=== PATIENT | male | born 1980 | race Caucasian/White ===

== ENCOUNTER 2022-04-21 08:56 | Inpatient (IN) | payer OTHER ==
[~2022-04-21] VITALS: Ht 177.8 cm; Wt 78.7 kg
[~2022-04-21 08:56] MED LIST: CHLO25 PO; ONDA4ODT MM; SULTRIDS PO
[2022-04-21 10:03] LABS: BASOPHILS ABSOLUTE AUTO 0.07 K/mm3 (0.00-0.23); BASOPHILS PERCENT AUTO 1 % (0-2); EOSINOPHILS ABSOLUTE AUTO 0.05 K/mm3 (0.00-0.68); EOSINOPHILS PERCENT AUTO 1 % (0-6); Hematocrit 42.4 % (37.0-53.0); Hemoglobin 13.4 g/dL (13.5-17.5); IMMATURE GRAN ABSOLUTE AUTO 0.04 K/mm3 (0.00-0.10); IMMATURE GRAN PERCENT AUTO 0 % (0-1); LYMPHOCYTES ABSOLUTE AUTO 2.06 K/mm3 (0.84-5.20); LYMPHOCYTES PERCENT AUTO 19 % (21-46); MONOCYTES ABSOLUTE AUTO 1.36 K/mm3 (0.16-1.47); MONOCYTES PERCENT AUTO 13 % (4-13); Mean Corpuscular HGB 32.8 pg (26.0-34.0); Mean Corpuscular HGB Conc 31.6 g/dL (31.5-36.5); Mean Corpuscular Volume 104 fL (80-100); Mean Platelet Volume 9.1 fL (9.1-12.4); NEUTROPHILS ABSOLUTE AUTO 7.15 K/mm3 (1.96-9.15); NEUTROPHILS PERCENT AUTO 67 % (41-73); NRBC ABSOLUTE 0.04 K/mm3 (0.00-0.02); NRBC Auto 0.4 /100 WBC (0.0-0.2); Platelet Count 454 K/mm3 (150-400); RDW Coefficient Variation 13.2 % (11.7-14.2); RDW Standard Deviation 50.4 fL (35.1-46.3); Red Blood Cell Count 4.09 M/mm3 (4.30-5.90); White Blood Cell Count 10.73 K/mm3 (4.00-11.30)
[2022-04-21 10:31] LABS: Albumin, Blood 2.6 g/dL (3.4-5.0); Albumin/Globulin Ratio 0.6 (0.8-1.8); Bilirubin, Direct 0.3 mg/dL (0.0-0.3); Bilirubin, Indirect 0.5 mg/dL (0.1-0.7); Bilirubin, Total 0.8 mg/dL (0.1-1.0); Calcium, Blood 8.8 mg/dL (8.5-10.1); Creatinine, Blood 0.92 mg/dL (0.60-1.20); Magnesium, Blood 2.1 mg/dL (1.6-2.4); Potassium, Blood 4.6 mmol/L (3.5-5.5); Thyroid Stimulating Hormone 2.7 uIU/mL (0.360-4.800); Total Protein, Blood 6.6 g/dL (6.4-8.2)
[2022-04-21 10:45] LABS: Influenza A, PCR NEGATIVE (NEGATIVE); Influenza B, PCR NEGATIVE (NEGATIVE); Resp Syncytial Virus, PCR NEGATIVE (NEGATIVE); SARS-Cov-2 (COVID-19) PCR, MMC NEGATIVE (NEGATIVE)
[2022-04-21 13:42] LABS: Base Excess Venous -5.1 mmol/L; Bicarbonate Venous 20.7 mmol/L (24.0-30.0); PCO2 Venous 36.3 mmHg (38-42); pH Blood Venous 7.36 (7.34-7.37)
[2022-04-21 13:51] LABS: International Normalized Ratio 1.7; Prothrombin Time Results 17.2 Sec (9.7-11.5)
--- NOTE | 2022-04-21 15:00 | NUR ---
PCU ADMIT PT BROUGHT TO PCU-12 BY KATEY FROM ER @ APPROX 1430. PT SLID OVER FROM [facility] TO PCU BED BY 3 STAFF MEMBERS. PT PT DOES NOT OPEN EYES WHEN STAFF ATTEMPTING TO WAKEN PT. PT RESPONDS TO PHYSICAL STIMULI W/ MOVEMENT &/OR GROANING THEN IMMEDIATELY GOES BACK TO SLEEP. MONITOR SHOWS ST, HR 130s-140s. PT ON 2L NC UPON ARRIVAL, TITRATING OXYGEN BETWEEN 2-4L NC FOR MAINTAINING SPO2 > 92%. PT RESPIRATIONS LABORED & IRREGULAR W/ RR 30's-40's. RT TO RM FOR EVAL. CIWA SCORE UNABLE TO BE COMPLETED UPON ARRIVAL D/T PT INABILITY TO ANSWER Q's. PT RESTLESS WHILE SLEEPING, OCCASSIONALLY GRABBING AT & PULLING AT NC.
[2022-04-21 18:07] LABS: U Amphetamine Screen DETECTED; U Barbituate Screen Not Detected; U Benzodiazapine Screen DETECTED; U Buprenorphine Screen Not Detected; U Cannabinoids Screen Not Detected; U Cocaine Screen Not Detected; U Methadone Screen Not Detected; U Methamphetamine Screen DETECTED; U Opiates Screen Not Detected; U Oxycodone Screen Not Detected; U Phencyclidine Screen Not Detected; U Propoxyphene Screen Not Detected
--- NOTE | 2022-04-21 19:37 | NUR ---
SHIFT SUMMARY PT SLEEPING, DIFFICULT TO WAKEN, MOANS IN RESPONSE. PT REPOSITIONING SELF IN BED FREQUENTLY. PT DID WAKE UP FULLY X1 THIS SHIFT, WAS ABLE TO STAND AT BEDSIDE & USE URINAL W/ STAFF SBA, STATE THAT HIS NAME WAS SHAR & THAT HE WAS IN THE HOSPITAL, & ANSWER SOME CIWA ASSESSMENET Q's. PT THEN IMMEDIATELY WENT BACK TO SLEEP ONCE FINISHED W/ URINAL USE & WAS AGAIN DIFFICULT TO WAKEN ONCE BACK TO SLEEP. URINE SENT FOR TOX SCREEN, SEE RESULTS. PT VSS. SPO2 > 92% ON 2-4L NC. MONITOR SHOWING ST, HR 130's-140's. CIWA: 11 WHEN PT ALERT TO ANSWER Q's. PRN IV ATIVAN GIVEN PER EMAR X1 BY THIS RN. REPORT GIVEN TO ACCEPTING TOEING STOCKINGS RN.
--- NOTE | 2022-04-21 20:21 | NUR ---
Assumed care 1900. VSS on 3L. RR 30-40. Abdominal and accessory muscle use with breathing, rate is irregular at times. Edema in BLE. HR 130s. CIWA 6 at start of shift, no prn meds given. Will continue to monitor.
--- NOTE | 2022-04-21 21:04 | NUR ---
Assumed care 1900. VSS on RA-2L prn. HR was sustaining 140s, scheduled metoprolol given with some effect has decreased to 110-120s. PRN pain meds given. Pt is anxious and scheduled meds given per JAN. A&O, but anxious. Education given about chest tube.
--- NOTE | 2022-04-21 21:22 | NUR ---
CIWA of 11, prn ativan given per orders.
--- NOTE | 2022-04-21 23:14 | NUR ---
Updated Dr. Ma on pt. Concern for RR 30-40 and HR 130-140s. Procal was slightly elevated. Dr. Tan stated he will review chart and possibly add new orders if indicated. VSS on 3L. RR remain in 30s and HR 130-140s.
--- NOTE | 2022-04-22 02:01 | NUR ---
Spoke with Dr. Murphy regarding RR 30-40s and HR 130-140s. MD added antibiotics and lasix.
--- NOTE | 2022-04-22 02:08 | NUR ---
RT paged to assess pt and see if there is anything else they would suggest on pt. RR 30-40s, irregular rate. Noisy lungs, coarse sounding.
--- NOTE | 2022-04-22 04:04 | NUR ---
Pt was moved to another bed and bailey was place. Pt was getting very agitated and anxious and respirations had increased >40. PRN ativan was given per CIWA protocol 2mg. Oxygen sats began to drop and titrated from 2L up to 10L. After bailey was placed temp probe read 101. Charge nurse stepped out to call MD to get tyelenol ordered and update on respiratory status. Checked BP at that time and SBP was reading <60. ICU notified and MD notified. 1L bolus ordered and started. Pt then went into respiratory arrest and shortly there after cardiac arrest. Code called. Levophed was started and pt was intubated and ROSC was achieved prior to pt transferring to ICU. Report given bedside to Jamila ADAIR. Pt has been lethargic and only minimally responsive to questions througout the shift. CIWA protocol followed and pt was medicated with ativan per orders. At times pt could say where he was and name, but would fall right back to sleep. RR 30-40 and HR also 130-140 throughout the shift, MD notified and antibiotics ordered as well as lasix. BP had remained stable until around 0300 when respiratory status had declined. Spoke with MD regarding chest xray and vitals and that was when the antibiotics were added in. Bailey was placed due to retention.
[2022-04-22 04:06] LABS: Source, Urine Foley catheter
[2022-04-22 04:12] LABS: Appearance, Urine Clear (Clear); Bilirubin, Urine Neg (Neg); Blood, Urine Neg (Neg); Color, Urine Yellow (P-Yellow); Glucose Qualitative, Urine Neg (Neg); Ketones, Urine Neg (Neg); Leukocyte Esterase, Urine Neg (Neg); Nitrite, Urine Neg (Neg); Protein, Urine 1+ (Neg); Urobilinogen, Urine NORM (Normal)
--- NOTE | 2022-04-22 04:52 | NUR ---
PT ARRIVES TO ICU WITH PCU TEAM AND ED DOC @ 0345, PT BEING BAGGED, UNRESPONSIVE, PUPILS NOT REACTING. DEFIB PADS IN PLACE, KERR IN PLACE, ANKLES EDEMATOUS BILAT L>R. HEART RATE 160-170'S ON MONITOR, BP LOW, LEVOPHED @ 10MCG IN RIGHT PERIPHERAL LINE, PLACING CENTRAL LINE, LEFT FEMORAL. PULSES FAINT, THREADY. FEET DUSKY, DARK LISHA URINE RETURNING FROM KERR, TEMP 101.4. PT PUT ON VENTILATOR, AC/VC 18/500/10/100%. LUNGS COARSE THROUGHOUT, RALES/ RHONCHI PRESENT. PT WITH FROTHY BLOOD TINGED RETURN FROM ETT. OG TUBE PLACED. MIDAZOLAM GTT STARTED @ 2MG/HR. PUPILS STARTING TO REACT, SLUGGISH, UNEQUAL. HEART RATE REMAINS IN THE 150'S, RIGHT JUGULOVENOUS DISTENTION, WELL LEFT. LEVO DOWN TO 5MCG FOR MAP'S 90'S.
[2022-04-22 05:07] LABS: BASOPHILS ABSOLUTE AUTO 0.07 K/mm3 (0.00-0.23); BASOPHILS PERCENT AUTO 1 % (0-2); EOSINOPHILS ABSOLUTE AUTO 0.09 K/mm3 (0.00-0.68); EOSINOPHILS PERCENT AUTO 1 % (0-6); Hematocrit 45.1 % (37.0-53.0); Hemoglobin 13.5 g/dL (13.5-17.5); IMMATURE GRAN ABSOLUTE AUTO 0.12 K/mm3 (0.00-0.10); IMMATURE GRAN PERCENT AUTO 1 % (0-1); LYMPHOCYTES ABSOLUTE AUTO 1.11 K/mm3 (0.84-5.20); LYMPHOCYTES PERCENT AUTO 11 % (21-46); MONOCYTES ABSOLUTE AUTO 0.64 K/mm3 (0.16-1.47); MONOCYTES PERCENT AUTO 6 % (4-13); Mean Corpuscular HGB 33.4 pg (26.0-34.0); Mean Corpuscular HGB Conc 29.9 g/dL (31.5-36.5); Mean Platelet Volume 9.3 fL (9.1-12.4); NEUTROPHILS ABSOLUTE AUTO 7.99 K/mm3 (1.96-9.15); NEUTROPHILS PERCENT AUTO 80 % (41-73); NRBC ABSOLUTE 0.07 K/mm3 (0.00-0.02); NRBC Auto 0.7 /100 WBC (0.0-0.2); Platelet Count 373 K/mm3 (150-400); RDW Coefficient Variation 13.4 % (11.7-14.2); RDW Standard Deviation 55.7 fL (35.1-46.3); Red Blood Cell Count 4.04 M/mm3 (4.30-5.90); White Blood Cell Count 10.02 K/mm3 (4.00-11.30)
[2022-04-22 05:09] LABS: Mean Corpuscular Volume 112 fL (80-100)
[2022-04-22 05:25] LABS: Magnesium, Blood 2.5 mg/dL (1.6-2.4)
[2022-04-22 05:28] LABS: Albumin/Globulin Ratio 0.8 (0.8-1.8); Bilirubin, Total 1.8 mg/dL (0.1-1.0); Bun/Creatinine Ratio 18.4 (12.0-20.0); Calcium, Blood 9.3 mg/dL (8.5-10.1); Creatinine, Blood 1.36 mg/dL (0.60-1.20); Globulin, Blood 3.6 g/dL (2.2-4.0); Potassium, Blood 4.6 mmol/L (3.5-5.5); Total Protein, Blood 6.6 g/dL (6.4-8.2)
--- NOTE | 2022-04-22 05:45 | NUR ---
PT'S LAB RETURNED WITH CRITICAL VALUE OF 19 ON HIS GLUCOSE, NOTIFIED AND 1 AMP D50 GIVEN. WILL TEST ANOTHER GLUCOSE IN 2 HOURS.
--- NOTE | 2022-04-22 06:04 | NUR ---
PT CONTINUES ON VENTILATOR, SETTINGS UNCHANGED. PT CONTINUES ON LEVOPHED @ 5MCG/MIN, MIDAZOLAM @ 2MG/HR, HEART RATE REAMINS AROUND 150, BP STABLE, SATS 96%. KERR WITH DARK FOUL SMELLING RETURN. BILATERAL LOWER EXTREMETIES WITH EDEMA, L>R. LEFT GROIN WITH CENTRAL LINE. PERIPHERAL IV'S ONE ON LEFT, ONE ON RIGHT. TEMP REMAINS ELEV. 101 VIA KERR TEMP PROBE. NOT RESPONDING TO WORDS OR PHYSICAL STIMULI.
--- NOTE | 2022-04-22 07:30 | NUR ---
ASSUMED CARE PT. UNRESPONSIVE TO STIMULI UPON ASSESSMENT, NO GAG NOTED AT THIS TIME. WEAK COUGH WITH DEEP ETT SUCTIONING OCCASIONALLY. PT. HAS VERSED GTT INFUSING AT 2MG/HR THIS WAS PLACED ON STAND BY AND PROPFOL GTT STARTED FOR SEDATION. PT. LS VERY COARSE, LARGE VOLUME OF PINK FROTHY FLUID SUCTIONED FROM ETT. PT HAS OG TUBE IN PLACE, CLAMPED AT THIS TIME. TEMP KERR IN PLACE, TEMP CURRENTLY 101.3, FAN PLACED AT BEDSIDE ALONG WITH ICE PACKS. WILL CALL TO GET TYLENOL ORDERED. PT. HR REMAINS ELEVATED IN 120S, LEVOPHED GTT INFUSING AT 4MCG/MIN. BG CHECKED THIS AM, WNL, D5 1/2NS INFUSING AT 50ML/HR. CENTRAL LINE TO LEFT FEMORAL. FAMILY CONTACTED AND UPDATED THIS AM.
--- NOTE | 2022-04-22 14:43 | NUR ---
PT UP TO CHAIR WITH CEILING LIFT. PT REMAINS ON 4LNC. ATTEMPTED BEDSIDE SWALLOW EVAL WHILE UP IN CHAIR. PT. COUGHING ON SIP OF WATER AT THIS TIME. PT TO REMAIN NPO, DOBHOFF IN PLACE.
--- NOTE | 2022-04-22 18:02 | NUR ---
SHIFT SUMMARY PT. REMAINS SEDATED AND INTUBATED, NOW GRIMACING WITH ORAL CARE. CONTINUES WITH PINK FLUID FROM ETT. PT. FIO2 DECREASED T/O SHIFT CURRENTLY AT 50%FIO2. TUBE FEED STARTED THIS SHIFT. PT REMAINS ON LEVOPHED GTT AT 4MCG/MIN. FAMILY IN TO VISIT TODAY. REPORT TO ONCOMING RN.
--- NOTE | 2022-04-23 00:14 | NUR ---
TUBE FEEDING HELD NEARLY 400ML OF BROWN WATERY CONSISTENCY RETURN DURING RESIDUAL CHECK. PT RESPONDING TO NOXIOUS STIMULI, IE ORAL CARE AND LOUD VOICE. NOT FOLLOWING COMMANDS, NOT OPENING EYES. NO SPONTANEOUS LIMB MOVEMENT. HEAD AND FACIAL GRIMACING ONLY. TRUNK WITH FINE PETICHIAE IN PATCHES BILATERALLY INTO THE LOWER ABDOMEN, IT IS NOT HOT TO TOUCH.
[2022-04-23 04:37] LABS: BASOPHILS ABSOLUTE AUTO 0.02 K/mm3 (0.00-0.23); BASOPHILS PERCENT AUTO 0 % (0-2); EOSINOPHILS PERCENT AUTO 2 % (0-6); Hematocrit 38.6 % (37.0-53.0); Hemoglobin 12.7 g/dL (13.5-17.5); IMMATURE GRAN ABSOLUTE AUTO 0.05 K/mm3 (0.00-0.10); IMMATURE GRAN PERCENT AUTO 0 % (0-1); LYMPHOCYTES ABSOLUTE AUTO 1.27 K/mm3 (0.84-5.20); LYMPHOCYTES PERCENT AUTO 9 % (21-46); MONOCYTES ABSOLUTE AUTO 0.71 K/mm3 (0.16-1.47); MONOCYTES PERCENT AUTO 5 % (4-13); Mean Corpuscular HGB 33.1 pg (26.0-34.0); Mean Corpuscular HGB Conc 32.9 g/dL (31.5-36.5); Mean Platelet Volume 9.2 fL (9.1-12.4); NEUTROPHILS ABSOLUTE AUTO 11.36 K/mm3 (1.96-9.15); NEUTROPHILS PERCENT AUTO 84 % (41-73); NRBC ABSOLUTE 0.05 K/mm3 (0.00-0.02); NRBC Auto 0.4 /100 WBC (0.0-0.2); Platelet Count 274 K/mm3 (150-400); RDW Coefficient Variation 13.2 % (11.7-14.2); RDW Standard Deviation 49.1 fL (35.1-46.3); Red Blood Cell Count 3.84 M/mm3 (4.30-5.90); White Blood Cell Count 13.61 K/mm3 (4.00-11.30)
[2022-04-23 04:49] LABS: Mean Corpuscular Volume 101 fL (80-100)
[2022-04-23 04:54] LABS: Bun/Creatinine Ratio 28.4 (12.0-20.0); Calcium, Blood 8.2 mg/dL (8.5-10.1); Creatinine, Blood 1.41 mg/dL (0.60-1.20); Magnesium, Blood 2.1 mg/dL (1.6-2.4); Phosphorus, Blood 2.7 mg/dL (2.5-4.9); Potassium, Blood 3.7 mmol/L (3.5-5.5)
--- NOTE | 2022-04-23 05:59 | NUR ---
SHAR CONTINUES ON VENTILATOR, 18/500/10/40%. COUGH WITH SUCTIONING, RETURN OF PINK TINGE WATERY FLUID. SATS REMAIN >96%. HEART RATE CONTINUES 110'S. BP STBLE WITH MAP >65, LEVOPHED @ 4MCG, PROPOFOL @ 40MCG/KG, PT RESPONDS WITH GRIMACING TO NOXIOUS STIMULI. SLIGHT MOVEMENT DETECTED IN THE RIGHT LEG. NO SPONTANEOUS MOVMENT NOTED WITH BATH OR WHEN RESTRAINTS ARE REMOVED FOR CARE. PUPILS REMAIN SMALL, SLUGGLISH TO REACT. DOES NOT OPEN EYES. OG TUBE WITH VHP @ 25ML/HR. RESIDUAL WAS 375ML TF HELD FOR 30MINUTES. NEXT RESIDUAL WAS 250ML REINSTILLED. FORMULA, WATERY CONSISTENCY AND BILE RETURN. PT NOT FOLLOWING COMMANDS, EDEMA OF ANKLES UNCHANGED. LUNG SOUNDS COARSE T/O, BOWEL SOUNDS QUIET. KERR WITH DARK YELLOW RETURN. NO OTHER CHANGES.
--- NOTE | 2022-04-23 07:15 | NUR ---
ASSUMED CARE THIS AM PT. PROPOFOL PLACED ON STANDY BY FOR NEURO ASSESSMENT. PT. CURRENTLY ONLY GRIMACES TO PAIN, NO SPONT MOVEMENT TO EXTREM. GAG AND COUGH NOTED THIS AM. UPWARD GAZE NOTED THIS AM. PT VENT SETTINGS THIS AM AC 18, 500, PEEP 10, 30%FIO2. PT. CONTINUES TO HAVE RED TINGED SECREATIONS WITH SUCTION, HOWEVER LESS THAN YESTERDAY. PT. REMAINS ON LEVOPHED GTT AT 4MCG/MIN. RASH NOTED TO SIDES AND LOWER ABD THIS AM. PT. CONTINUES WITH KERR DRAINING TO GRAVITY. OG TUBE HAS TF INFUSING VHP AT 35ML/HR, 100ML RESIDUAL REINSTILLED THIS AM.
--- NOTE | 2022-04-23 07:46 | NUR ---
SEDATION ON STAND BY FOR APPROX 40 MIN. PT. ABLE TO SQUEEZE HANDS TO COMMAND, ATTEMPTS TO OPEN EYES BUT UNABLE. SHAKES HEAD YES WHEN ASKED IF HE CAN HEAR THIS RN, SLOW TO RESPOND. RR INCREASED TO 30S, AND HR INCREASED TO 130S WITH BP DECREASING. LEVOPHED GTT TITRATED UP AND PROPOFOL GTT RESTARTED FOR SEDATION.
--- NOTE | 2022-04-23 09:45 | NUR ---
DR. GUAJARDO IN TO ASSESS PT PLANS FOR ADDING NEOSYNEPHRINE AND TITRATING DOWN LEVOPHED IF PT TOLERATES. NOTIFIED OF DECREASED URINE OUTPUT, PLANS FOR LASIX ADMIN.
--- NOTE | 2022-04-23 10:30 | NUR ---
PICC LINE PLACED TO ALTHEA, CENTRAL LINE REMOVED FROM RIGHT GROIN. SITE WNL.
--- NOTE | 2022-04-23 14:00 | NUR ---
KERR CATHETER KERR CATHETER CONTINUED TO HAVE MINIMAL URINE OUTPUT AFTER LASIX ADMIN. APPEARS TO BE DRAINING CLEAR YELLOW URINE, HOWEVER APPEARS THAT PT IS LEAKING SMALL AMOUNT AROUND OF FLUID AT INSERTION SITE. KERR FLUSHED WITH STERILE WATER, WITH CONTINUED SLOW RETURN OF URINE. BLADDER SCAN DONE, SHOWING ELEVATED VOLUMES IN BLADDER. TEMP KERR REMOVED AND NEW KERR PLACED, NOW DRAINING CLEAR YELLOW URINE, NEW SPECIMEN SENT. INCREASED URINE OUPUT NOTED WITH NEW KERR.
[2022-04-23 15:54] LABS: Source, Urine Foley catheter
[2022-04-23 16:00] LABS: Bilirubin, Urine Neg (Neg); Blood, Urine 5+ (Neg); Color, Urine Yellow (P-Yellow); Glucose Qualitative, Urine Neg (Neg); Ketones, Urine Neg (Neg); Leukocyte Esterase, Urine Neg (Neg); Nitrite, Urine Neg (Neg); Protein, Urine 1+ (Neg); Urobilinogen, Urine NORM (Normal)
[2022-04-23 16:07] LABS: Appearance, Urine Hazy (Clear)
[2022-04-23 16:15] LABS: Red Blood Cells, Urine 25-50 /hpf (0-2); White Blood Cells, Urine 0-2 /hpf (0-5)
[2022-04-23 16:16] LABS: Renal Epithelial Rare /hpf (0-Rare)
[2022-04-23 16:17] LABS: Bacteria Mod /hpf; Granular Casts 0-2 /lpf (0); Squamous Epithelial Cells Not Seen /hpf (Few)
--- NOTE | 2022-04-23 17:52 | NUR ---
SHIFT SUMMARY PT. REMAINS SEDATED AND INTUBATED T/O SHIFT. PT. HAS NEOSYNEPHRINE AND LEVOPHED INFUSING, GOAL IS TO TITRATE LEVOPHED GTT DOWN TOLERATED, SEE FLOW SHEET. PT. REMAINED AFEBRILE T/O SHIFT. MULTIPLE FAMILY MEMBERS UPDATED T/O DAY. KERR DRAINING TO GRAVITY. REPORT TO ONCOMING NURSE.
--- NOTE | 2022-04-23 19:00 | NUR ---
ASSUMED CARE OF PATIENT: SHAR IS LYING RECLINE POSITION IN THE BED. HE IS ON THE VENTILATOR AC/VC+ 18/500/10/30%. PINK FROTHY RETURN IN THE ETT SUCTION. LUNGS ARE COARSE WITH AN END INSPIRATORY WHEEZE NOTED THROUGHOUT ALL LUNG DAO. ABDOMEN IS SEMI SOFT, PT GRIMACES WITH PALPATION OF LOWER QUADRANTS. KERR WITH CLEAR YELLOW RETURN, BILATERAL LOWER EXTREMITY WITH EDEMA PITTING L>R. VHP @ 35ML/HR INFUSING VIA OGT.
--- NOTE | 2022-04-23 21:00 | NUR ---
RESIDUAL OF 530ML, TUBE FEEDING ON HOLD.
[2022-04-24 04:01] LABS: BASOPHILS ABSOLUTE AUTO 0.03 K/mm3 (0.00-0.23); BASOPHILS PERCENT AUTO 0 % (0-2); EOSINOPHILS ABSOLUTE AUTO 0.49 K/mm3 (0.00-0.68); EOSINOPHILS PERCENT AUTO 5 % (0-6); Hematocrit 37.4 % (37.0-53.0); Hemoglobin 12.1 g/dL (13.5-17.5); IMMATURE GRAN ABSOLUTE AUTO 0.05 K/mm3 (0.00-0.10); IMMATURE GRAN PERCENT AUTO 1 % (0-1); LYMPHOCYTES ABSOLUTE AUTO 1.19 K/mm3 (0.84-5.20); LYMPHOCYTES PERCENT AUTO 12 % (21-46); MONOCYTES ABSOLUTE AUTO 0.63 K/mm3 (0.16-1.47); MONOCYTES PERCENT AUTO 6 % (4-13); Mean Corpuscular HGB 32.4 pg (26.0-34.0); Mean Corpuscular HGB Conc 32.4 g/dL (31.5-36.5); Mean Corpuscular Volume 100 fL (80-100); Mean Platelet Volume 9.1 fL (9.1-12.4); NEUTROPHILS ABSOLUTE AUTO 7.89 K/mm3 (1.96-9.15); NEUTROPHILS PERCENT AUTO 77 % (41-73); NRBC ABSOLUTE 0.04 K/mm3 (0.00-0.02); NRBC Auto 0.4 /100 WBC (0.0-0.2); Platelet Count 233 K/mm3 (150-400); RDW Coefficient Variation 13.3 % (11.7-14.2); RDW Standard Deviation 49.5 fL (35.1-46.3); Red Blood Cell Count 3.73 M/mm3 (4.30-5.90); White Blood Cell Count 10.28 K/mm3 (4.00-11.30)
[2022-04-24 04:18] LABS: International Normalized Ratio 1.31; Prothrombin Time Results 13.5 Sec (9.7-11.5)
[2022-04-24 04:31] LABS: Albumin, Blood 2.2 g/dL (3.4-5.0); Albumin/Globulin Ratio 0.7 (0.8-1.8); Bilirubin, Total 1.7 mg/dL (0.1-1.0); Calcium, Blood 8.2 mg/dL (8.5-10.1); Creatinine, Blood 1.13 mg/dL (0.60-1.20); Globulin, Blood 3.1 g/dL (2.2-4.0); Magnesium, Blood 1.9 mg/dL (1.6-2.4); Phosphorus, Blood 2.1 mg/dL (2.5-4.9); Potassium, Blood 2.9 mmol/L (3.5-5.5); Total Protein, Blood 5.3 g/dL (6.4-8.2)
--- NOTE | 2022-04-24 04:53 | NUR ---
RESIDUALS REMAIN HIGH, TUBE FEEDING TURNED OFF FOR NOW. PT WITH SOME SPONTANEOUS MOVEMENTS BUT VERY LITTLE WHEN UNRESTRAINED FOR POSITION CHANGES, BATH, CIRC CHECKS, ETC. WON'T OPEN EYES ON COMMAND, EYES CONTINUE TO BE CRUSTY AND DIFFICULT TO OPEN.
--- NOTE | 2022-04-24 06:03 | NUR ---
SHAR CONTINUES ON VENTILATOR AC/VC+ 18/500/10/30%. LUNGS REMAIN COARSE WITH THIN PINK FROTHY RETURN VIA SUCTION. PT WITH CRUSTY EYELIDS, DOESN'T OPEN TO COMMAND, GRIMACES WHEN OPENED, GRIMACES WITH ORAL CARE. MINIMAL MOVEMENT OF ARMS WITH TURNS AND CIRC. CHECKS. OGT WITH VHP CURRENTLY OFF AT THIS TIME R/T ELEVATED RESIDUALS, 550/270/325. RESIDUALS FORMULA/WATERY SUBSTANCE/YELLOWISH. KERR WITH GOOD URINE OUTPUT, NO BM. EDEMA BILAT LOWER EXTREM. L>R. BATH GIVEN.
--- NOTE | 2022-04-24 06:12 | NUR ---
PROPOFOL @ 40MCG/KG, NEOSYNEPHRINE @ 50MCG, NOREPINEPHRINE OFF. NS TKO.
--- NOTE | 2022-04-24 08:28 | NUR ---
Care Assumed 0700 Pt intubated and sedated. Propofol GTT 40 Mcg/kg/min, Crispin at 50 mcg/min, and TKO infusing via ALTHEA PICC. Vent settings: AC/VC+ 18/500/10/30%. Pt grimaces during oral care, moving all extrems, unable to follow directions at this time. LS clear upper and crackles in left lower base, thick pink frothy return via suction. TF VHP restarted at 40 ml/hr goal with 30 ml Q4H flush, BT hypoactive. Stewart in place with 250 ml of dark yellow/clear output. LLE edema 2+ compared to minial in RLE. Sinus tach, SPO2 99%, MAP > 65.
--- NOTE | 2022-04-24 08:58 | NUR ---
Provider Visit Dr. Alvarez in to see patient, updated on patient labs (low K and phos). PRovider to put in order for replacement.
--- NOTE | 2022-04-24 10:32 | NUR ---
Propofol GTT decreased to 30 mcg/kg/min, pt attempting to open eyes but unable to squeeze hands or nod yes/no. HR elevated to 119, BP decreased to SBP 80's, MAP > 65, RR elevated. Propofol and Crispin titrated, see flow sheet. Family updated on current patient care, spoke to Kevin (mother).
--- NOTE | 2022-04-24 12:11 | NUR ---
Provider Visit Dr. Freitas and Dr. Rogers in to see patient. Goal is to titrate propofol off and start patient on precedex with Ativan as needed.
--- NOTE | 2022-04-24 14:15 | NUR ---
Update- increased alertness Pt opening eyes to verbal stumli, strong receiving and processing supervisor bilaterally, and moving all extrems when asked. Nods no to being in pain and to knowing location. Nods yes to knowing name. On Crispin Gtt 60 mcg/min, Precedex 0.7 mcg/kg/hr, and propofol remains on SB. Dr. Rogers at bedside and updated on current status. Provider would like an A-line and asked this to be discussed with Dr. Freitas. Left femoral site is WNL from previous line.
--- NOTE | 2022-04-24 14:42 | NUR ---
Dr. Freitas at bedside Changed vent setting to PS for less than 30 seconds and did not tolerate well. Increased work on breathing (RR 30's) and agitated. Switched back to previous settings and given PRN ativen to help with vent tolerance. Crispin GTT 70 mcg/min, MAP > 64. made aware of Dr. Pena A-line recommendations.
[2022-04-24 17:02] LABS: Magnesium, Blood 1.6 mg/dL (1.6-2.4); Phosphorus, Blood 3.9 mg/dL (2.5-4.9); Potassium, Blood 3.5 mmol/L (3.5-5.5)
--- NOTE | 2022-04-24 17:58 | NUR ---
Shift Summary Pt intubated and sedated. Precedex gtt 0.7 mcg/kg/hr and Crispin 80 mcg/min (MAP > 65), infusing via PICC. Pt able to open eyes and follow commands. Increased agitation and RR, treated with Ativan per Dr. Freitas. Provider ordered Versed GTT in case it is needed for sedation purposes. Currently sleeping peacefully when undisturbed. Vent settings unchanged, red thin frothy sputum from ETT. Stewart in place with 600 ml output, dark yellow cloudy was clear/yellow at the start of shift. TF VHP @ goal, residual of [address]. Sinus tach. Family at bedside throughout the day, brother Dong and girlfriend Vandana. Spoke to patients mother and brother via phone as well to update. All questions answered.
--- NOTE | 2022-04-24 19:15 | NUR ---
ASSUMPTION OF CARE PT REMAINS INTUBATED WITH VENT SETTINGS AC/VC+ 18/500/10/30%. HE IS RECEIVING PRECEDEX 0.7MCG/KG/HR, NEOSYNEPHRINE 80MCG/MIN AND NS TKO. TUBE FEEDING INFUSING AT GOAL RATE. KERR PATENT AND DRAINING LISHA URINE TO GRAVITY. CORE TEMP 102. MEDICATED PER EMAR, FAN APPLIED. SEE SHIFT ASSESSMENT.
[2022-04-25 05:11] LABS: BASOPHILS ABSOLUTE AUTO 0.11 K/mm3 (0.00-0.23); BASOPHILS PERCENT AUTO 1 % (0-2); EOSINOPHILS ABSOLUTE AUTO 0.49 K/mm3 (0.00-0.68); EOSINOPHILS PERCENT AUTO 5 % (0-6); Hematocrit 39.3 % (37.0-53.0); Hemoglobin 12.4 g/dL (13.5-17.5); IMMATURE GRAN ABSOLUTE AUTO 0.04 K/mm3 (0.00-0.10); IMMATURE GRAN PERCENT AUTO 0 % (0-1); LYMPHOCYTES ABSOLUTE AUTO 1.79 K/mm3 (0.84-5.20); LYMPHOCYTES PERCENT AUTO 17 % (21-46); MONOCYTES ABSOLUTE AUTO 0.96 K/mm3 (0.16-1.47); MONOCYTES PERCENT AUTO 9 % (4-13); Mean Corpuscular HGB 32.5 pg (26.0-34.0); Mean Corpuscular HGB Conc 31.6 g/dL (31.5-36.5); Mean Corpuscular Volume 103 fL (80-100); Mean Platelet Volume 9.4 fL (9.1-12.4); NEUTROPHILS ABSOLUTE AUTO 7.44 K/mm3 (1.96-9.15); NEUTROPHILS PERCENT AUTO 69 % (41-73); NRBC ABSOLUTE 0.03 K/mm3 (0.00-0.02); NRBC Auto 0.3 /100 WBC (0.0-0.2); Platelet Count 265 K/mm3 (150-400); RDW Coefficient Variation 13.8 % (11.7-14.2); RDW Standard Deviation 52.7 fL (35.1-46.3); Red Blood Cell Count 3.81 M/mm3 (4.30-5.90); White Blood Cell Count 10.83 K/mm3 (4.00-11.30)
[2022-04-25 05:36] LABS: Albumin, Blood 2.2 g/dL (3.4-5.0); Albumin/Globulin Ratio 0.7 (0.8-1.8); Bilirubin, Total 1.6 mg/dL (0.1-1.0); Bun/Creatinine Ratio 45.1 (12.0-20.0); Calcium, Blood 7.9 mg/dL (8.5-10.1); Creatinine, Blood 0.95 mg/dL (0.60-1.20); Globulin, Blood 3.2 g/dL (2.2-4.0); Magnesium, Blood 1.8 mg/dL (1.6-2.4); Phosphorus, Blood 3.2 mg/dL (2.5-4.9); Potassium, Blood 3.4 mmol/L (3.5-5.5); Total Protein, Blood 5.4 g/dL (6.4-8.2)
[2022-04-25 05:36] LABS: PCO2 Arterial 33.8 mmHg (35-45); PO2 Arterial 84.4 mmHg (80-100); pH Blood Arterial 7.48 (7.35-7.45)
--- NOTE | 2022-04-25 06:11 | NUR ---
SHIFT SUMMARY PT REMAINS INTUBATED WITH VENT SETTINGS AC/VC+ 18/500/10/30%. HE IS RECEIVING NEOSYNEPHRINE 70MCG/MIN, PRECEDEX 0.7MCG/KG/HR AND NS TKO. HE WAKES TO NOXIOUS STIMULI, BEGINS COUGHING, PULLS AGAINST RESTRAINTS AND ATTEMPTS TO SIT UP. HE WILL TRACK SOME MOVEMENT BUT DOES NOT FOLLOW COMMANDS. HE CALMS WITH UNINTERRUPTED REST. WHEN AWAKE, RR INCREASES TO 30S. ETT SECRETIONS ARE WHITE STREAKED WITH PINK/RED. VHP TUBE FEEDING WAS INFUSING AT GOAL RATE. RESIDUALS AT 0600 WERE 400ML OF FORMULA. DISCARDED 250ML AND TF PLACED ON STANDBY. KERR PATENT AND DRAINING LISHA/CLOUDY URINE TO GRAVITY. HE HAD 400ML URINE OUTPUT THIS SHIFT. CORE TMAX 102, MEDICATED PER EMAR IN ADDITION TO ICE PACKS AND FAN. HE REMAINS IN SINUS TACH WITH HR 100S-110S. MARTÍNEZ CONTINUES TO INFUSE TO MAINTAIN MAP. WILL REPORT TO ONCOMING RN.
--- NOTE | 2022-04-25 07:41 | NUR ---
REPORT FROM PM RN, RESTRAINTS IN PLACE, NO S/S OF DISTRESS, VSS, RECEDEX AT 0.7 MCG, MARTÍNEZ @ 70, PICC LINE, HVP HELD FOR RESIDUAL OF 400, WCTM
[2022-04-25 08:08] LABS: HBSAG SCREEN Negative (Negative); HCV AB <0.1 (0.0-0.9); HEP A AB, IGM Negative (Negative); HEP B CORE AB, IGM Negative (Negative)
--- NOTE | 2022-04-25 09:14 | NUR ---
DR PETTIT ROUNDED, REPORTED RESIDUAL OF 250, PER DR PETTIT GIVE 250 BACK AND RESTART TF FOR NOW, RESTRAINT ORDERED RENEWED, PATIETN FOLLOWS DIRECTION, BECOMES AGGITATED AND UNCONSOLABLE, GIRLFRIEND CYNDY AT BEDSIDE
--- NOTE | 2022-04-25 17:28 | NUR ---
PAIN RESPONDS, FOLLOWS DIRECTIONS, BECOMES UNCONSOLABLE, RESPS 50, GEART RATE 150 WHEN OFF SEDATION. PRECEDEX INFUSING AT 1.2, MARTÍNEZ AT 60 MCG, HEART RATE 91, 114/98 (104). TEMP WAS 102, ICE PACKS AND COOLING BLANKET USED, TEMP NOW 96.2, WARMED BLANKET TO PATIENT, RESTRAINTS IN PLACE, PULLS AT RESTRAINTS AND SITS UP. MOM GIVEN, PIVOT 1.5 AT 45 ML/HR, TEMP KERR TO GRAVITY. FULL CODE, DID NOT DO A SEDATION HOLIDAY PER DR EDMONDSON TODAY, [facility], WILL RELAY TO PM RN
[2022-04-26 04:25] LABS: BASOPHILS PERCENT AUTO 1 % (0-2); EOSINOPHILS ABSOLUTE AUTO 0.81 K/mm3 (0.00-0.68); EOSINOPHILS PERCENT AUTO 7 % (0-6); Hematocrit 37.3 % (37.0-53.0); IMMATURE GRAN ABSOLUTE AUTO 0.04 K/mm3 (0.00-0.10); IMMATURE GRAN PERCENT AUTO 0 % (0-1); LYMPHOCYTES ABSOLUTE AUTO 1.47 K/mm3 (0.84-5.20); LYMPHOCYTES PERCENT AUTO 13 % (21-46); MONOCYTES ABSOLUTE AUTO 1.01 K/mm3 (0.16-1.47); MONOCYTES PERCENT AUTO 9 % (4-13); Mean Corpuscular HGB 33.1 pg (26.0-34.0); Mean Corpuscular HGB Conc 32.2 g/dL (31.5-36.5); Mean Corpuscular Volume 103 fL (80-100); Mean Platelet Volume 9.6 fL (9.1-12.4); NEUTROPHILS ABSOLUTE AUTO 7.78 K/mm3 (1.96-9.15); NEUTROPHILS PERCENT AUTO 69 % (41-73); Platelet Count 232 K/mm3 (150-400); RDW Coefficient Variation 13.9 % (11.7-14.2); RDW Standard Deviation 52.5 fL (35.1-46.3); Red Blood Cell Count 3.62 M/mm3 (4.30-5.90); White Blood Cell Count 11.21 K/mm3 (4.00-11.30)
[2022-04-26 04:43] LABS: Albumin, Blood 2.8 g/dL (3.4-5.0); Anion Gap 8 mmol/L (6-16); Blood Urea Nitrogen 37 mg/dL (8-24); Bun/Creatinine Ratio 41.2 (12.0-20.0); CO2, Blood 27 mmol/L (21-32); Calcium, Blood 8.3 mg/dL (8.5-10.1); Chloride, Blood 108 mmol/L (98-108); Glomerular Filtration Rate 111 (60-); Glucose, Blood 96 mg/dL (70-99); Potassium, Blood 3.5 mmol/L (3.5-5.5); Sodium, Blood 143 mmol/L (136-145)
--- NOTE | 2022-04-26 06:44 | NUR ---
SHIFT SUMMERY PT REMAINS INTUBATED AT THIS TIME. PRECEDEX GTT W/PRN ATIVAN AND MORPHINE FOR SEDATION/PAIN/ETOH W/DRAWALS. PT BECOMES EXTREMELY AGITATED WITH ANY STIMULATION. TUBE FEEDING RESIDUALS WERE GREATER THAN 500ML-FEEDING ON HOLD AT THIS TIME. NEOSYNEPHRINE DRIP FOR HYPOTENSION WAS WEANED OFF, PT MAPS ARE >65 WITHOUT PRESSOR SUPPORT AT THIS TIME. HR IS IN THE 80S AND OXYGEN SAT >90%. THERE ARE NO S/S OF ACUTE DISTRESS NOTED AT THIS TIME.
--- NOTE | 2022-04-26 12:32 | NUR ---
REASSESSMENT PT REMAINS INTUBATED AND SEDATED WITH PRECEDEX. HE WAKES TO VOICE AND WILL FOLLOW SIMPLE COMMANDS, BUT SETLES BACK DOWN WHEN LEFT ALONE. HIS LUNGS ARE CLEAR, SMALL AMT OF SECRETIONS FROM ETT, CLEAR/RED. SR, BP STABLE, REMAINS OFF OF PRESSORS. ABDOMEN FIRM, HYPOACTIVE BT. TF WAS HELD LAST NIGHT FOR HIGH RESIDUALS. DISCUSSED WITH THE WOOD AND HARDWARE OUTFITTER AND HE PUT IN ORDERS FOR SENNA AND SUPPOSITORY SINCE PT HASN'T HAD A BM SINCE ADMIT. SUPPOSITORY GIVEN. RESIDUAL CHECKED THIS MORNING WAS 5ML SO TUBE FEED RESTARTED AT THE 25ML THE PUMP WAS ALREADY PROGRAMMED TO. WOOD AND HARDWARE OUTFITTER DISCUSSED REGLAN WITH DR. EDMONDSON AND HE AGREED SO WILL INCREASE TF RATE ONCE REGLAN GIVEN RESIDUAL WAS 200ML AT NOON. KERR DRAINING DARK YELLOW URINE. RASH UNCHANGED. KPHOS INFUSING PER DR. EDMONDSON'S ORDERS. PT'S GF WAS BY AND UPDATED BY NURSING STAFF. PT'S SON'S GRANDMOTHER WAS IN SEEING PT AND UPDATED BY DR. EDMONDSON. CONTINUING TO MONITOR.
--- NOTE | 2022-04-26 17:02 | NUR ---
SHIFT SUMMARY PT REMAINED INTUBATED AND SEDATED TODAY. PEEP TURNED DOWNTO [address] EDMONDSON'S ORDERS. LUNGS ARE CLEAR AND ONLY A SMALL AMT OF SPUTUM SUCTIONED OUT TODAY. SR, BP STABLE OFF OF PRESSORS. PT STILL HAVING HIGH RESIDUALS SO TF LEFT AT 25ML/HR FOR NOW. SUPPOSITORY AND REGLAN GIVEN TODAY. KERR DRAINING DARK YELLOW URINE. CONTINUING TO MONITOR.
--- NOTE | 2022-04-26 19:00 | NUR ---
ASSUMED CARE ASSUMED CARE OF PATIENT. REMAINS INTUBATED- AC/VC+ 18/500/5/25%. RR 18-20s. SEDATED WITH PRECEDEX AT 1.2MCG/KG/HR. PT OPENS EYES TO VERBAL STIMULI. FOLLOWS SIMPLE COMMANDS TO SQUEEZE HANDS AND WIGGLE TOES. DOES NOT SHAKE/NOD HEAD IN RESPONSE TO QUESTIONS. OCCASIONALLY RESTLESS. PULLS AGAINST RESTRAINTS. CALMS WITH REASSURANCE. MONITOR SHOWS NSR, RATE 90s. BP STABLE. AFEBRILE. OG WITH PIVOT 1.5 INFUSING AT 25CC/HR (GOAL IS 45CC/HR). STILL NO BM. KERR PATENT AND DRAINING TO GRAVITY. ALTHEA PICC NOTED. SEE SHIFT ASSESSMENT FOR FULL ASSESSMENT.
[2022-04-27 04:17] LABS: BASOPHILS ABSOLUTE AUTO 0.05 K/mm3 (0.00-0.23); BASOPHILS PERCENT AUTO 0 % (0-2); EOSINOPHILS ABSOLUTE AUTO 0.69 K/mm3 (0.00-0.68); EOSINOPHILS PERCENT AUTO 6 % (0-6); Hematocrit 37.4 % (37.0-53.0); IMMATURE GRAN ABSOLUTE AUTO 0.04 K/mm3 (0.00-0.10); IMMATURE GRAN PERCENT AUTO 0 % (0-1); LYMPHOCYTES ABSOLUTE AUTO 1.06 K/mm3 (0.84-5.20); LYMPHOCYTES PERCENT AUTO 9 % (21-46); MONOCYTES ABSOLUTE AUTO 0.92 K/mm3 (0.16-1.47); MONOCYTES PERCENT AUTO 7 % (4-13); Mean Corpuscular HGB Conc 32.1 g/dL (31.5-36.5); Mean Corpuscular Volume 103 fL (80-100); Mean Platelet Volume 9.7 fL (9.1-12.4); NEUTROPHILS ABSOLUTE AUTO 9.75 K/mm3 (1.96-9.15); NEUTROPHILS PERCENT AUTO 78 % (41-73); Platelet Count 233 K/mm3 (150-400); RDW Coefficient Variation 13.6 % (11.7-14.2); Red Blood Cell Count 3.64 M/mm3 (4.30-5.90); White Blood Cell Count 12.51 K/mm3 (4.00-11.30)
[2022-04-27 04:40] LABS: Albumin, Blood 2.4 g/dL (3.4-5.0); Albumin/Globulin Ratio 0.9 (0.8-1.8); Bilirubin, Direct 0.9 mg/dL (0.0-0.3); Bilirubin, Indirect 0.6 mg/dL (0.1-0.7); Bilirubin, Total 1.5 mg/dL (0.1-1.0); Calcium, Blood 8.4 mg/dL (8.5-10.1); Creatinine, Blood 0.64 mg/dL (0.60-1.20); Globulin, Blood 2.8 g/dL (2.2-4.0); Phosphorus, Blood 1.7 mg/dL (2.5-4.9); Potassium, Blood 3.3 mmol/L (3.5-5.5); Total Protein, Blood 5.2 g/dL (6.4-8.2)
--- NOTE | 2022-04-27 06:34 | NUR ---
SHIFT SUMMARY NO ACUTE CHANGES DURING SHIFT. REMAINS INTUBATED- AC/VC+ 18/500/5/ FIO2 NOW 30%. RR 18-20s. CONTINUE TO SUCTION MODERATE AMOUNTS OF THICK TANNISH YELLOW SPUTUM. SEDATED WITH PRECEDEX BETWEEN 1.2-1.4MCG/KG/HR. NOW INFUSING AT 1.4MCG/KG/HR. MEDICATED WITH ATIVAN 2MG IV X 3 DOSES FOR INCREASED RESTLESSNESS AND AGITATION DURING SHIFT. PT OPENS EYES SPONTANEOUSLY. CONTINUES TO FOLLOW SIMPLE COMMANDS. DID NOD HEAD YES OR NO THIS MORNING. DENIED C/O PAIN THIS AM WHEN ASKED. BILATERAL SOFT WRIST RESTRAINTS REMAIN IN PLACE. MONITOR SHOWS NSR, RATE 80s-90s. BP STABLE. TMAX 99.0F. OG WITH PIVOT 1.5 AT 35CC/HR (GOAL IS 45CC/HR). 30CC H20 FLUSH Q4H. OG RESIDUALS HAVE BEEN BETWEEN 130-360CC DURING NOC. STILL NO BM, BUT PT IS PASSING FLATUS. KERR PATENT AND DRAINING TO GRAVITY. WILL REPORT TO ONCOMING RN WHEN AVAILABLE.
--- NOTE | 2022-04-27 18:24 | NUR ---
SUMMARY PT INTUBATED AND SEDATED WITH PRECEDEX. PT WILL WAKE TO VERBAL AND FOLLOW COMMANDS. ATTEMPTS TO WRITE IN THE AIR WITH FINGER TO COMMUNICATE BUT WHEN GIVEN PEN AND PAPER HE IS UNABLE TO WRITE CLEARLY. ANXIOUS AT TIMES. ATIVAN GIVEN PRN AND WORKS WELL. SBT THIS AM FOR 2 HOURS. PT GETS ANXIOUS AND RESP RATE GOES UP TO 40. PT TOLERATING TUBE FEED WELL. RATE INCREASED TO 45ML WHICH IS GOAL. RESIDUALS 20-50ML ALL DAY. HAD BM THIS AM. LOTS OF FAMILY IN TO VISIT TODAY. NO OTHER CHANGES.
--- NOTE | 2022-04-27 19:00 | NUR ---
ASSUMED CARE ASSUMED CARE OF PATIENT. REMAINS INTUBATED- AC/VC+ 18/500/5/30%. RR 20-22. SEDATED WITH PRECEDEX AT 1.4UNITS/KG/HR. AGITATED AND RESTLESS- ATIVAN 2MG IV GIVEN. OPENS EYES TO VERBAL STIMULI. MOVES ALL EXTREMITIES AND FOLLOWS SIMPLE COMMANDS TO SQUEEZE HANDS AND WIGGLE TOES. ATTEMPTS TO WRITE ON PAPER, BUT WRITING IS ILLEGIBLE. BILATERAL SOFT WRIST RESTRAINTS IN PLACE TO PROTECT TUBES/LINES. MONITOR SHOWS ST, RATE 115-120. BP STABLE. TEMP 101.8F VIA KERR TEMP PROBE. OG WITH PIVOT 1.5 AT GOAL RATE OF 45ML/HR. KERR PATENT AND DRAINING TO GRAVITY. SEE SHIFT ASSESSMENT FOR FULL ASSESSMENT.
[2022-04-28 04:22] LABS: BASOPHILS ABSOLUTE AUTO 0.06 K/mm3 (0.00-0.23); BASOPHILS PERCENT AUTO 1 % (0-2); EOSINOPHILS ABSOLUTE AUTO 0.57 K/mm3 (0.00-0.68); EOSINOPHILS PERCENT AUTO 5 % (0-6); Hematocrit 36.4 % (37.0-53.0); Hemoglobin 11.5 g/dL (13.5-17.5); IMMATURE GRAN ABSOLUTE AUTO 0.05 K/mm3 (0.00-0.10); IMMATURE GRAN PERCENT AUTO 1 % (0-1); LYMPHOCYTES ABSOLUTE AUTO 1.67 K/mm3 (0.84-5.20); LYMPHOCYTES PERCENT AUTO 15 % (21-46); MONOCYTES ABSOLUTE AUTO 1.13 K/mm3 (0.16-1.47); MONOCYTES PERCENT AUTO 10 % (4-13); Mean Corpuscular HGB 32.6 pg (26.0-34.0); Mean Corpuscular HGB Conc 31.6 g/dL (31.5-36.5); Mean Corpuscular Volume 103 fL (80-100); Mean Platelet Volume 10.1 fL (9.1-12.4); NEUTROPHILS ABSOLUTE AUTO 7.49 K/mm3 (1.96-9.15); NEUTROPHILS PERCENT AUTO 68 % (41-73); NRBC ABSOLUTE 0.02 K/mm3 (0.00-0.02); NRBC Auto 0.2 /100 WBC (0.0-0.2); Platelet Count 235 K/mm3 (150-400); RDW Coefficient Variation 14.1 % (11.7-14.2); RDW Standard Deviation 53.6 fL (35.1-46.3); Red Blood Cell Count 3.53 M/mm3 (4.30-5.90); White Blood Cell Count 10.97 K/mm3 (4.00-11.30)
[2022-04-28 04:38] LABS: Albumin, Blood 2.4 g/dL (3.4-5.0); Anion Gap 6 mmol/L (6-16); Blood Urea Nitrogen 35 mg/dL (8-24); Bun/Creatinine Ratio 42.3 (12.0-20.0); CO2, Blood 27 mmol/L (21-32); Calcium, Blood 7.9 mg/dL (8.5-10.1); Chloride, Blood 109 mmol/L (98-108); Creatinine, Blood 0.83 mg/dL (0.60-1.20); Glomerular Filtration Rate 113 (60-); Glucose, Blood 120 mg/dL (70-99); Phosphorus, Blood 3.5 mg/dL (2.5-4.9); Potassium, Blood 3.5 mmol/L (3.5-5.5); Sodium, Blood 142 mmol/L (136-145)
--- NOTE | 2022-04-28 06:42 | NUR ---
SHIFT SUMMARY NO ACUTE CHANGES. REMAINS INTUBATE- VENT SETTINGS UNCHANGED. PT IS STILL SEDATED WITH PRECEDEX AT 1.4MCG/KG/HR. MORE RESTLESS AND AGITATED T/O SHIFT. MEDICATED WITH FENTANYL 2MG IV X 4 DOSES FOR AGITATION AND MS 4MG IV X 2 DOSES FOR PAIN AND SEDATION ADJUNCT. PT REACHES FOR ETT WHENEVER RESTRAINTS ARE OFF OR LOOSENED. OCCASIONALLY CALMS WITH REASSURANCE, BUT ONLY FOR SHORT TIMES. MOVES ALL EXTREMITIES AND FOLLOWS COMMANDS. CONTINUES TO ATTEMPT TO WRITE, BUT WRITING IS ILLEGIBLE. TRIES TO MOUTH WORDS. NODS HEAD YES/NO APPROPRIATELY. OG WITH PIVOT 1.5 AT GOAL RATE OF 45ML/HR. RESIDUALS 20-50. INCONTINENT OF LOOSE STOOL THIS AM. KERR PATENT AND DRAINING TO GRAVITY. VSS T/O NOC. TMAX 102.1F. ALTHEA PICC PATENT WITH [place] C/D/I. WILL REPORT TO ONCOMING RN WHEN AVAILABLE.
--- NOTE | 2022-04-28 08:03 | NUR ---
PT INTUBATED AND ON PRECEDEX. WIDE AWAKE ON 1.4MCG/KG/HR. ATTEMPTS TO MOUTH WORDS AROUND ETT. PT WILL SETTLE SOMETIMES WITH VERBAL DIRECTION BUT GETS FRUSTRATED EASILY ESPECIALLY WHEN FAMILY IS AT BEDSIDE. HR ALSO INCREASES WITH AGITATION.
--- NOTE | 2022-04-28 18:04 | NUR ---
SUMMARY PT INTUBATED AND SEDATED WITH PRECEDEX. STARTED ON HALDOL TODAY AND ATIVAN INCREASED DUE TO AGITATION AND ANXIETY. WHEN SEDATION IS DOWN PT COUGHS, RESTLESS, AND CONSTANTLY TRIES TO MOUTH WORDS AROUND ETT DESPITE EDUCATION THAT THIS IS NOT POSSIBLE. UNABLE TO WRITE. PT WAS GETTING SO WORKED UP THAT HIS HR WAS UP TO 130'S. LESS SECRETIONS TODAY. TOLERATING TUBE FEED WITH RESIDUALS 10ML OR LESS. LOTS OF FAMILY IN TO SEE HIM TODAY. NO OTHER CHANGES.
--- NOTE | 2022-04-28 19:00 | NUR ---
ASSUMED CARE ASSUMED CARE OF PATIENT. REMAINS INTUBATED- AC/VC+ 18/500/5/30%. RR 20s. PT SEDATED WITH PRECEDEX AT 1.4MCG/KG/HR. OPENS EYES SPONTANEOUSLY. FOLLOWS SIMPLE COMMANDS. NODS HEAD YES/NO APPROPRIATELYL. DENIES C/O PAIN AT THIS ITME. ATTEMPTS TO MOUTH WORDS. INTERMITTENT PERIODS OF RESTLESSNESS AND AGITITAION. MONITOR SHOWS NSR, RATE 80s. BP STABLE. TEMP 98.6F. OG WITH PIVOT 1.5 AT GOAL RATE OF 45ML/HR. 30ML H20 FLUSH Q4H. KERR PATENT AND DRAINING TO GRAVITY- DARK YELLOW URINE. ALTHEA PICC NOTED. SEE SHIFT ASSESSMENT FOR FULL ASSESSMENT.
--- NOTE | 2022-04-28 23:00 | NUR ---
CODE BLUE PRIOR TO CODE BLUE, AT 2254 PT'S DURING BATH, RHYTHM CHANGED FROM SB-SR, RATE 50s-60s TO A JUCTIONAL RHYTHM, RATE 50s. RHYTHM CHANGED TO ACCERERATED JUNCTIONAL, RATE 70s, AT 2256. AT 2259, MONITOR SHOWS WIDE COMPLEX RHYTHM, RATE 40s. NO PULSE. CODE BLUE STARTED. SEE CODE BLUE SHEET FOR DETAILS.
[2022-04-28 23:52] LABS: BASOPHILS ABSOLUTE AUTO 0.13 K/mm3 (0.00-0.23); BASOPHILS PERCENT AUTO 1 % (0-2); EOSINOPHILS PERCENT AUTO 10 % (0-6); Hematocrit 38.9 % (37.0-53.0); Hemoglobin 11.9 g/dL (13.5-17.5); IMMATURE GRAN ABSOLUTE AUTO 0.27 K/mm3 (0.00-0.10); IMMATURE GRAN PERCENT AUTO 2 % (0-1); LYMPHOCYTES ABSOLUTE AUTO 2.48 K/mm3 (0.84-5.20); LYMPHOCYTES PERCENT AUTO 20 % (21-46); MONOCYTES ABSOLUTE AUTO 0.88 K/mm3 (0.16-1.47); MONOCYTES PERCENT AUTO 7 % (4-13); Mean Corpuscular HGB 32.4 pg (26.0-34.0); Mean Corpuscular HGB Conc 30.6 g/dL (31.5-36.5); Mean Corpuscular Volume 106 fL (80-100); Mean Platelet Volume 10.2 fL (9.1-12.4); NEUTROPHILS ABSOLUTE AUTO 7.66 K/mm3 (1.96-9.15); NEUTROPHILS PERCENT AUTO 61 % (41-73); NRBC ABSOLUTE 0.04 K/mm3 (0.00-0.02); NRBC Auto 0.3 /100 WBC (0.0-0.2); Platelet Count 277 K/mm3 (150-400); RDW Coefficient Variation 14.4 % (11.7-14.2); RDW Standard Deviation 57.1 fL (35.1-46.3); Red Blood Cell Count 3.67 M/mm3 (4.30-5.90); White Blood Cell Count 12.62 K/mm3 (4.00-11.30)
[2022-04-28 23:59] LABS: Base Excess Venous -0.2 mmol/L; Bicarbonate Venous 22.7 mmol/L (24.0-30.0); PCO2 Venous 47.5 mmHg (38-42); pH Blood Venous 7.34 (7.34-7.37)
[2022-04-29 00:03] LABS: Bun/Creatinine Ratio 42.3 (12.0-20.0); Creatinine, Blood 0.95 mg/dL (0.60-1.20); Magnesium, Blood 2.1 mg/dL (1.6-2.4); Phosphorus, Blood 4.8 mg/dL (2.5-4.9); Potassium, Blood 4.1 mmol/L (3.5-5.5)
[2022-04-29 00:07] LABS: International Normalized Ratio 1.1; Prothrombin Time Results 11.5 Sec (9.7-11.5)
--- NOTE | 2022-04-29 02:45 | NUR ---
POST CODE 04/28/22 7955- CODE BLUE LABS DRAWN, EKG AND CXR DONE. PRECEDEX TURNED OFF DURING CODE. 04/29/22 0005- DR. EDMONDSON NOTIFIED OF CODE BLUE AND CURRENT STATUS. NEW ORDERS RECEIVED. 0015- MOTHER, CARLOS, NOTIFIED OF EVENTS AT 0015. 0020- DR. BLUNT NOTIFIED OF CRITICAL LABS AND UPDATED ON CONDITION. NEW ORDERS RECEIVED. 0030- PT UNRESPONSIVE TO STIMULI. PUPILS ARE 1MM, SLUGGISH. BREATHING OVER VENTILATOR SET RATE. SUCTIONING BLOOD FROM ETT. 0040- LEVOPHED STARTED AT 1MCG/MIN. 0100- PT COUGHING AND CHEWING ON ETT. VERSED GTT STARTED AT THIS TIME AT 2MG/HR. OPENS EYES SPONTANEOUSLY. NOT FOLLOWING COMMANDS. 0240- PT OPENS. SQUEEZES BILATERAL HANDS TO COMMAND. INCREASED RESTLESSNESS AND COUGHING NOTE. VERSED GTT INCREASED TO 4MG/HR. CONTINUES WITH BLOOD FROM ETT. LEVOPHED AT 2MCG/MIN.
--- NOTE | 2022-04-29 03:45 | NUR ---
LIQUID STOOL PT WITH FREQUENT LIQUID BROWN STOOL- RECTAL TUBE PLACED AT THIS TIME.
--- NOTE | 2022-04-29 05:55 | NUR ---
SHIFT SUMMARY PT REMAINS INTUBATED. VENT SETTINGS UNCHANGED. SINCE CODE BLUE, ETT SECRETIONS HAVE BEEN BLOODY. LESS SO THIS AM, THOUGH. CHANGED TO A VERSED GTT AFTER CODE BLUE FOR SEDATION. PT NOW SEDATED WITH VERSED GTT AT 4MG/HR. OPENS EYES TO STIMULI. SQUEEZED HANDS BILATERALLY EARLIER, BUT IS NOT FOLLOWING COMMANDS AT THIS TIME. BILATERAL SOFT WRIST RESTRAINTS IN PLACE. MONITOR SHOWS ST, RATE 120s. BP STABLE WITH LEVOPHED AT 2MCG/MIN. TMAX 101.8F- TYLENOL 650MG GIVEN PT THIS AM. OG WITH PIVOT 1.5 AT GOAL RATE OF 45CC/HR. KERR PATENT AND DRAINING TO GRAVITY. RECTAL TUBE IN PLACE. WILL REPORT TO ONCOMING RN WHEN AVAILABLE.
[2022-04-29 09:01] LABS: Albumin, Blood 2.3 g/dL (3.4-5.0); Anion Gap 5 mmol/L (6-16); Blood Urea Nitrogen 42 mg/dL (8-24); CO2, Blood 29 mmol/L (21-32); Calcium, Blood 8.4 mg/dL (8.5-10.1); Chloride, Blood 107 mmol/L (98-108); Creatinine, Blood 0.81 mg/dL (0.60-1.20); Glomerular Filtration Rate 114 (60-); Glucose, Blood 109 mg/dL (70-99); Phosphorus, Blood 2.8 mg/dL (2.5-4.9); Potassium, Blood 3.7 mmol/L (3.5-5.5); Sodium, Blood 141 mmol/L (136-145)
--- NOTE | 2022-04-29 10:06 | NUR ---
ASSUMED CARE OF PT, REPORT RCV'D FROM MANA MALAVE. PT INTUBATED AND SEDATED. VENT SETTINGS AC 18/500/5/30%. VERSED @ 4, LEVOPHED @ 2MCG/MIN. PLACED VERSED ON STANDBY FOR NEURO CHECK. PT FOLLOWS COMMANDS TO SQUEEZE HANDS BILATERALLY. LUNG SOUNDS COARSE T/O, MODERATE AMOUNT OF THICK BLOODY SPUTUM FROM ETT. SIT WITH HR: 110-125. BP WNL. TMAX 101.8. KERR CATHETER PATENT AND DRAINING TO GRAVITY. RECTAL TUBE IN PLACE. FAMILY AT BEDSIDE, UPDATED BY APPRAISAL ANALYST AND WILDLIFE PROTECTOR. SEE FULL SHIFT ASSESSMENT.
--- NOTE | 2022-04-29 10:33 | NUR ---
PT'S WALLET/DEBIT CARD TAKEN HOME BY BROTHER RUDY FOR SAFEKEEPING. PT'S SON INGRID AND EX- FAZAL AT BEDSIDE, AGREE WITH RUDY TAKING BELONGINGS HOME.
--- NOTE | 2022-04-29 18:03 | NUR ---
SHIFT SUMMARY PT REMAINS LIGHTLY SEDATED ON PROPOFOL 25 MCG/KG/MIN. PT AROUSABLE TO VERBAL STIMULI, FOLLOWS COMMANDS, ATIVAN PRN FOR AGITATION. TMAX 101.6, CURRENT TEMP 99.6. VENT SETTINGS AC 16/500/5/30%. SMALL AMOUNT OF BLOOD TINGED SPUTUM FROM ETT. RECTAL TUBE DRAINING LIQUID BROWN STOOL. PT SIT, LEVOPHED ON STANDBY SINCE 1000, MAPS REMAIN >65. OGT INFUSING PIVOT 1.5 @GOAL RATE. 2900 ML URINARY OUTPUT. WILL REPORT ONCOMING NURSE.
--- NOTE | 2022-04-30 02:13 | NUR ---
PT INTERMITTENT ALERT FOLLOWING COMMANDS. TRACK OBJECTS WITH EYES. WIGGLES EXTREMETIES. SEDATION TITRATED TO COMFORT - PT OVERBREATHING VENT, COUGH, GRIMACE - PRN ADMINISTERED - EFFECTIVE. PITTING EDEMA ALL EXTREMETIES. ET TUBE IN PLACE - THIN ET SECRETION. SCANT ORAL SECRETIONS. LUNGS SOUNDS CLEARED SHIFT PROGRESSED AND W/SUCTION. TF AT GOAL - LIQUID STOOL (RECTAL TUBE IN PLACE). ACTIVE DIURESIS - KERR FOR ACCURATE UO. SLIGHT TURNS TOLERATED - BONY PROMINENCES OFFLOADED AND PROTECTED. CTM COMFORT, OXYGENATION.
[2022-04-30 03:20] LABS: BASOPHILS ABSOLUTE AUTO 0.09 K/mm3 (0.00-0.23); BASOPHILS PERCENT AUTO 1 % (0-2); EOSINOPHILS PERCENT AUTO 8 % (0-6); Hematocrit 34.5 % (37.0-53.0); IMMATURE GRAN ABSOLUTE AUTO 0.07 K/mm3 (0.00-0.10); IMMATURE GRAN PERCENT AUTO 1 % (0-1); LYMPHOCYTES ABSOLUTE AUTO 1.49 K/mm3 (0.84-5.20); LYMPHOCYTES PERCENT AUTO 11 % (21-46); MONOCYTES ABSOLUTE AUTO 1.07 K/mm3 (0.16-1.47); MONOCYTES PERCENT AUTO 8 % (4-13); Mean Corpuscular HGB 32.4 pg (26.0-34.0); Mean Corpuscular HGB Conc 31.9 g/dL (31.5-36.5); Mean Corpuscular Volume 102 fL (80-100); Mean Platelet Volume 9.8 fL (9.1-12.4); NEUTROPHILS PERCENT AUTO 73 % (41-73); Platelet Count 289 K/mm3 (150-400); RDW Coefficient Variation 14.1 % (11.7-14.2); Red Blood Cell Count 3.39 M/mm3 (4.30-5.90); White Blood Cell Count 14.22 K/mm3 (4.00-11.30)
[2022-04-30 03:39] LABS: Albumin, Blood 2.2 g/dL (3.4-5.0); Albumin/Globulin Ratio 0.6 (0.8-1.8); Bilirubin, Direct 0.7 mg/dL (0.0-0.3); Bilirubin, Indirect 0.6 mg/dL (0.1-0.7); Bilirubin, Total 1.3 mg/dL (0.1-1.0); Bun/Creatinine Ratio 43.5 (12.0-20.0); Calcium, Blood 8.5 mg/dL (8.5-10.1); Creatinine, Blood 0.76 mg/dL (0.60-1.20); Globulin, Blood 3.4 g/dL (2.2-4.0); Phosphorus, Blood 2.5 mg/dL (2.5-4.9); Potassium, Blood 3.8 mmol/L (3.5-5.5); Total Protein, Blood 5.6 g/dL (6.4-8.2)
--- NOTE | 2022-04-30 10:13 | NUR ---
ASSUMED CARE OF PT, REPORT RCV'D FROM MANA PISANO PT INTUBATED AND SEDATED. VENT SETTINGS AC 16/500/5/30% WITH SATS>95%. LUNG SOUNDS CLEAR, OCCASION SMALL AMOUNT OF BLOOD TINGED SPUTUM FROM ETT. PT SEDATED WITH PROPOFOL @30 MCG/KG/MIN. PT ALERT TO VERBAL STIMUL, FOLLOWS COMMANDS WEAKLY, TRACKS MOVEMENT T/O ROOM. PIVOT 1.5 AT GOAL RATE. RECTAL TUBE PATENT WITH WATERY BROWN STOOL IN TUBE. TEMP KERR PATENT AND DRAINING TO GRAVITY. CURRENT TEMP 99.6. PTS MOTHER UPDATED THIS AM. SEE FULL SHIFT ASSESSMENT.
[2022-04-30 10:26] LABS: Vancomycin, Trough 22.8 ug/mL (5.0-10.0)
--- NOTE | 2022-04-30 17:46 | NUR ---
SHIFT SUMMARY NO ACUTE CHANGES THIS SHIFT. PT REMAINS INTUBATED AND LIGHTLY SEDATED. RESPONDS TO VERBAL STIMULI AND FOLLOWS COMMANDS. 1900 ML URINARY OUTPUT. PT'S FAMILY UPDATED WITH PT'S PROGRESS, RECENT TEST RESULTS, AND PLAN OF CARE AT THIS TIME. WILL REPORT TO ONCOMING NURSE.
--- NOTE | 2022-05-01 01:27 | NUR ---
PT ARRIVED FROM ED INTUBATED ON PROPOFOL IN RESTRAINTS. PT RESTED OVERNIGHT. RT VENT MANAGED. OG TO LIS. KERR FOR ACCURATE UO. Q2 TURNS BONY PROMINENCES OFFLOADED AND PROTECTED.
--- NOTE | 2022-05-01 01:35 | NUR ---
UNEVENTFUL NIGHT. ACTIVE DIURESIS - KERR FOR ACCURATE UO. CONTINUED INTUBATED AND SEDATED PER MD ORDERS. RESTRAINTS CONTINUED FOR PT SAFETY. PTTTING EDEMA GENERALIZED 1+. CTM TO MONITOR OXYGENATION, COMFORT
[2022-05-01 03:26] LABS: BASOPHILS PERCENT AUTO 1 % (0-2); EOSINOPHILS ABSOLUTE AUTO 1.32 K/mm3 (0.00-0.68); EOSINOPHILS PERCENT AUTO 11 % (0-6); Hematocrit 35.6 % (37.0-53.0); IMMATURE GRAN ABSOLUTE AUTO 0.06 K/mm3 (0.00-0.10); IMMATURE GRAN PERCENT AUTO 1 % (0-1); LYMPHOCYTES ABSOLUTE AUTO 1.81 K/mm3 (0.84-5.20); LYMPHOCYTES PERCENT AUTO 15 % (21-46); MONOCYTES ABSOLUTE AUTO 0.93 K/mm3 (0.16-1.47); MONOCYTES PERCENT AUTO 8 % (4-13); Mean Corpuscular HGB 31.7 pg (26.0-34.0); Mean Corpuscular HGB Conc 30.9 g/dL (31.5-36.5); Mean Corpuscular Volume 103 fL (80-100); Mean Platelet Volume 9.7 fL (9.1-12.4); NEUTROPHILS ABSOLUTE AUTO 7.68 K/mm3 (1.96-9.15); NEUTROPHILS PERCENT AUTO 65 % (41-73); Platelet Count 354 K/mm3 (150-400); RDW Coefficient Variation 14.1 % (11.7-14.2); RDW Standard Deviation 53.3 fL (35.1-46.3); Red Blood Cell Count 3.47 M/mm3 (4.30-5.90)
[2022-05-01 03:42] LABS: Albumin, Blood 2.2 g/dL (3.4-5.0); Anion Gap 6 mmol/L (6-16); Blood Urea Nitrogen 31 mg/dL (8-24); Bun/Creatinine Ratio 40.3 (12.0-20.0); CO2, Blood 31 mmol/L (21-32); Calcium, Blood 8.8 mg/dL (8.5-10.1); Chloride, Blood 102 mmol/L (98-108); Creatinine, Blood 0.77 mg/dL (0.60-1.20); Glomerular Filtration Rate 116 (60-); Glucose, Blood 101 mg/dL (70-99); Phosphorus, Blood 3.2 mg/dL (2.5-4.9); Potassium, Blood 4.4 mmol/L (3.5-5.5); Sodium, Blood 139 mmol/L (136-145)
--- NOTE | 2022-05-01 07:39 | NUR ---
ASSUMPTION OF CARE RECEIVED REPORT FROM ANA LUISA ADAIR, ASSUMED CARE OF PATIENT. PATIENT INTUBATED AND SEDATED ON 30MCG/KG OF PROPOFOL. VENT SETTINGS AC 16/500/30%/5, SP02 ABOVE 95%. SUCTIONED MODERATE AMOUNTS OF THICK, BROWN SPUTUM VIA ETT. PATIENT AWAKE, FOLLOWS COMMANDS, NO DISTRESS NOTED. FEBRILE OF 100.1 PER KERR TEMP PROBE, FAN IN PLACE. KERR CATHETER PATENT AND DRAINING CLEAR, YELLOW URINE. RECTAL TUBE WITH BROWN LIQUID DRAINAGE. REVIEWED ORDERS, WILL TREAT PRESCRIBED.
--- NOTE | 2022-05-01 18:05 | NUR ---
SHIFT SUMMARY NEURO: PATIENT AWAKES TO PHYSICAL STIMULI. FOLLOWS COMMANDS. PROPOFOL OF 30MCG/KG INFUSING FOR VENT TOLERANCE. REMAINS CALM AND COOPERATIVE. RESP: COARSE T/O, SUCTIONING THICK, WHITE SPUTUM VIA ETT. VENT SETTINGS UNCHANGED OF AC 16/500/5/30%. SP02 ABOVE 95%. CARDIAC: SINUS TACH 110-120'S, CARVEDILOL INCREASED PER CARDIOLOGY. ADDED ADDITIONAL DIURETIC PER DR. AKHTAR. B/P DECREASED WITH MEDICATION INCREASED. WANTS TO CONTINUE DOSES AND START LEVOPHED FOR AGGRESSIVE DIURESING. LEVOPHED AT 2.5MG WITH MAP MAINTAINING ABOVE 65. EDEMA CONTINUES TO BUE AND BLE. GI: TF CONTINUED AT 45ML/HR VIA OG. RECTAL TUBE REMAINED IN PLACE WITH BROWN LIQUID STOOL, STOOL SOFTNERS HELD. : KERR WITH CLEAR, YELLOW URINE. REPOSITIONED, BED ON AUTOMATIC ROTATION FOR SKIN INTEGRITY. FAMILY UPDATED THROUGHOUT DAY. WILL REPORT TO ONCOMING RN.
[2022-05-02 01:26] LABS: Vancomycin, Trough 20.2 ug/mL (5.0-10.0)
[2022-05-02 03:48] LABS: BASOPHILS ABSOLUTE AUTO 0.17 K/mm3 (0.00-0.23); BASOPHILS PERCENT AUTO 1 % (0-2); EOSINOPHILS PERCENT AUTO 10 % (0-6); Hematocrit 37.2 % (37.0-53.0); Hemoglobin 11.8 g/dL (13.5-17.5); IMMATURE GRAN ABSOLUTE AUTO 0.07 K/mm3 (0.00-0.10); IMMATURE GRAN PERCENT AUTO 1 % (0-1); LYMPHOCYTES ABSOLUTE AUTO 1.75 K/mm3 (0.84-5.20); LYMPHOCYTES PERCENT AUTO 14 % (21-46); MONOCYTES ABSOLUTE AUTO 0.79 K/mm3 (0.16-1.47); MONOCYTES PERCENT AUTO 6 % (4-13); Mean Corpuscular HGB Conc 31.7 g/dL (31.5-36.5); Mean Corpuscular Volume 101 fL (80-100); Mean Platelet Volume 9.9 fL (9.1-12.4); NEUTROPHILS ABSOLUTE AUTO 8.58 K/mm3 (1.96-9.15); NEUTROPHILS PERCENT AUTO 68 % (41-73); Platelet Count 426 K/mm3 (150-400); RDW Coefficient Variation 13.8 % (11.7-14.2); RDW Standard Deviation 51.5 fL (35.1-46.3); Red Blood Cell Count 3.69 M/mm3 (4.30-5.90); White Blood Cell Count 12.66 K/mm3 (4.00-11.30)
[2022-05-02 04:08] LABS: Anion Gap 7 mmol/L (6-16); Blood Urea Nitrogen 32 mg/dL (8-24); Bun/Creatinine Ratio 45.1 (12.0-20.0); CO2, Blood 32 mmol/L (21-32); Calcium, Blood 9.1 mg/dL (8.5-10.1); Chloride, Blood 99 mmol/L (98-108); Creatinine, Blood 0.71 mg/dL (0.60-1.20); Glomerular Filtration Rate 119 (60-); Glucose, Blood 125 mg/dL (70-99); Magnesium, Blood 1.3 mg/dL (1.6-2.4); Phosphorus, Blood 3.2 mg/dL (2.5-4.9); Potassium, Blood 3.6 mmol/L (3.5-5.5); Sodium, Blood 138 mmol/L (136-145); Triglycerides 158 mg/dL (30-160)
--- NOTE | 2022-05-02 04:46 | NUR ---
PT ALERT/FOLLOWING COMMANDS/CONCRETE FINISHER EQUAL BLE/WIGGLE TOES ON COMMANDS BUT IMPULISE - FIGHTING RESTRAINTS TO REACH ET TUBE. BEHAVIOR REDIRECTED BUT UNEFFECTIVE PT CONTINUE TO REACH FOR ET TUBE - RESTRAINTS CONTINUED. DENIES PAIN. SEDATION TO COMFORT. EDEMA RECEDING. LEVO TITRATED TOLERATED. LUNGS SOUNDS CLEAR ALL LOBES. SCANT ORAL AND ET SECRETIONS. TF AT GOAL. RECTAL TUBE COLLECTING LIQUID STOOL. KERR FOR ACCURATE UO - ACTIVE DIURESIS. Q2 TURNS BONY PROMINENCES PROTECTED AND OFFLOADED.
--- NOTE | 2022-05-02 08:14 | NUR ---
ASSUMED CARE PT. AWAKENS EASILY TO VERBAL STIMULI, TRACKING IN ROOM, ABLE TO FOLLOW COMMANDS AND SHAKES HEAD YES AND NO TO QUESTIONS. PT. SHAKES HEAD NO TO PAIN. PT. REMAINS IN BILAT WRIST RESTRAINTS FOR LINE AND TUBE PROTECTION, PULLING ON RESTRAINTS AND REACHING TOWARD ETT. PT. VENT SETTINGS OF AC 16, TV 500, 30%FIO2 AND PEEP 5. PT. HAS TF INFUSING AT GOAL. LIQUID STOOL IN RECTAL TUBE. KERR DRAINING YELLOW URINE THIS AM. AFEBRILE. LEVOPHED AT 1MCG/MIN INFUSING ALONG WITH PROPOFOL FOR SEDATION.
--- NOTE | 2022-05-02 14:28 | NUR ---
PT HR INCREASING TO 115-120S DR. AKHTAR NOTIFIED, CHEST XRAY OBTAINED. PLANS TO CONTINUE DIURESIS, AND ALBUMIN ORDERED.
--- NOTE | 2022-05-02 17:44 | NUR ---
SHIFT SUMMARY PT. REMAINS INTUBATED AND SEDATED T/O SHIFT. CONTINUES WITH LASIX FOR DIURESIS. PT HR DID INCREASE AND NEED FOR LEVOPHED TO BE TITRATED UP TO 4MCG/MIN DUE TO TRENDING DOWN BP. ALBUMIN GIVEN, HR THEN TRENDED BACK DOWN TO THE 90S. CONTINUES WITH LIQUID STOOL. TF DECREASED TO 25ML PER ORDER. ALL NEEDS MET AT THIS TIME. REPORT TO ONCOMING RN.
--- NOTE | 2022-05-03 01:24 | NUR ---
FOLLOWS COMMANDS BUT IMPULSIVE. FIGHTING RESTRAINTS TO REACH ET TUBE. SEDATION TO COMFORT. PAIN MANAGED ON PRN EFFECTIVE. LEVO TITRATED OFF. VENT MANAGED BY RT. TF AT GOAL. RECTAL TUBE IN PLACE - LIQUID STOOLS. KERR FOR ACCURATE UO. BED BATH - Q2 TURNS BONY PROMINENCES OFFLOADED AND PROTECTED. CTM COMFORT, OXYGENATION
[2022-05-03 03:14] LABS: BASOPHILS ABSOLUTE AUTO 0.13 K/mm3 (0.00-0.23); BASOPHILS PERCENT AUTO 1 % (0-2); EOSINOPHILS ABSOLUTE AUTO 1.13 K/mm3 (0.00-0.68); EOSINOPHILS PERCENT AUTO 11 % (0-6); Hematocrit 33.7 % (37.0-53.0); Hemoglobin 10.9 g/dL (13.5-17.5); IMMATURE GRAN ABSOLUTE AUTO 0.03 K/mm3 (0.00-0.10); IMMATURE GRAN PERCENT AUTO 0 % (0-1); LYMPHOCYTES ABSOLUTE AUTO 1.69 K/mm3 (0.84-5.20); LYMPHOCYTES PERCENT AUTO 16 % (21-46); MONOCYTES ABSOLUTE AUTO 0.65 K/mm3 (0.16-1.47); MONOCYTES PERCENT AUTO 6 % (4-13); Mean Corpuscular HGB 32.3 pg (26.0-34.0); Mean Corpuscular HGB Conc 32.3 g/dL (31.5-36.5); Mean Corpuscular Volume 100 fL (80-100); Mean Platelet Volume 9.4 fL (9.1-12.4); NEUTROPHILS ABSOLUTE AUTO 6.74 K/mm3 (1.96-9.15); NEUTROPHILS PERCENT AUTO 65 % (41-73); Platelet Count 371 K/mm3 (150-400); RDW Coefficient Variation 13.5 % (11.7-14.2); RDW Standard Deviation 49.9 fL (35.1-46.3); Red Blood Cell Count 3.37 M/mm3 (4.30-5.90); White Blood Cell Count 10.37 K/mm3 (4.00-11.30)
[2022-05-03 03:36] LABS: Bun/Creatinine Ratio 40.4 (12.0-20.0); Calcium, Blood 9.4 mg/dL (8.5-10.1); Creatinine, Blood 0.67 mg/dL (0.60-1.20); Magnesium, Blood 1.9 mg/dL (1.6-2.4); Phosphorus, Blood 3.4 mg/dL (2.5-4.9); Potassium, Blood 3.4 mmol/L (3.5-5.5)
--- NOTE | 2022-05-03 10:30 | NUR ---
PT WAS PLACED ON SBT THIS AM AND DID WELL. EXTUBATED AT 1028 TO 2L NC. PT IS ABLE TO INTERACT WITH FAMILY AND IS A/O TO PERSON, PLACE, AND FOLLOWING DIRECTION. NO SIGN OF DISTRESS.
--- NOTE | 2022-05-03 18:04 | NUR ---
SUMMARY PT EXTUBATED TODAY AT 1028. ON RA WITH SPO2 GREATER THAN 90%. LEVOPHED WAS TURNED OFF THIS AM WELL AND BP STABLE. PT IS A/O TO PERSON, PLACE, FAMILY, AND SURROUNDINGS. PLEASANT AND COOPERATIVE. UP TO RECLINER CHAIR TODAY WITH LIFT. PT COULD PROBABLY STAND BECAUSE HE IS STRONG BUT DID NOT WANT TO STRESS HIS HEART. PT MOVES SELF IN RECLINER AND CAN SHIFT WEIGHT INDEP. USES ARMS TO PUSH HIMSELF UP. PT IS NPO, SPOKE WITH SPEECH THERAPIST TODAY THAT RECOMMENDED PT BE NPO UNTIL TOMORROW DUE TO THE LENGTH OF INTUBATION. PT WILL BE NPO AFTER MIDNIGHT WELL FOR HYDRAULIC PRESS OPERATOR PROCEDURE TOMORROW. DR. GUAJARDO IS TAKING PT TO HYDRAULIC PRESS OPERATOR, NO OFFICIAL TIME YET. NO OTHER CHANGES, NO SIGN OF DISTRESS. CALL LIGHT IN REACH. PT WISHES TO STAY UP IN RECLINER FOR NOW.
--- NOTE | 2022-05-03 19:38 | NUR ---
PATIENT AWAKE ATTEMPTING TO GET UP OUT OF CHAIR, VERBALIZED FEELING RESTLESS, AND ANXIOUS. ORIENT TO PERSON AND PLACE UNSURE OF MONTH. MAEW GENERALIZED WEAKNESS. PATIENT ASSISTED WITH LIFT TO BED AND ATIVAN IV GIVEN TO HELP PATIENT RELAX. PATIENT VERBALIZED UNDERSTANDING REGARDING BEING NPO DUE TO RECENT EXTUBATION AND PLAN FOR THREAD REELER TOMORROW. OXYGEN 2L/NC IN PLACE. RECTAL TUBE IN PLACE DRAINING LIQUID BROWN STOOL.
--- NOTE | 2022-05-03 22:27 | NUR ---
RECTAL TUBE REMOVED, AND ATTENDS PLACED. PATIENT ABLE TO ASSIST WITH POSITIONING. AND ABLE TO BRUSH TEETH WITH SUCTION SWAB.
[2022-05-04 05:03] LABS: BASOPHILS PERCENT AUTO 2 % (0-2); EOSINOPHILS ABSOLUTE AUTO 1.33 K/mm3 (0.00-0.68); EOSINOPHILS PERCENT AUTO 11 % (0-6); Hemoglobin 12.8 g/dL (13.5-17.5); IMMATURE GRAN ABSOLUTE AUTO 0.05 K/mm3 (0.00-0.10); IMMATURE GRAN PERCENT AUTO 0 % (0-1); LYMPHOCYTES ABSOLUTE AUTO 1.81 K/mm3 (0.84-5.20); LYMPHOCYTES PERCENT AUTO 15 % (21-46); MONOCYTES ABSOLUTE AUTO 0.92 K/mm3 (0.16-1.47); MONOCYTES PERCENT AUTO 8 % (4-13); Mean Corpuscular HGB 31.8 pg (26.0-34.0); Mean Corpuscular HGB Conc 32.8 g/dL (31.5-36.5); Mean Corpuscular Volume 97 fL (80-100); Mean Platelet Volume 9.3 fL (9.1-12.4); NEUTROPHILS ABSOLUTE AUTO 8.02 K/mm3 (1.96-9.15); NEUTROPHILS PERCENT AUTO 65 % (41-73); Platelet Count 436 K/mm3 (150-400); RDW Coefficient Variation 13.2 % (11.7-14.2); Red Blood Cell Count 4.02 M/mm3 (4.30-5.90); White Blood Cell Count 12.33 K/mm3 (4.00-11.30)
[2022-05-04 05:18] LABS: Albumin, Blood 3.5 g/dL (3.4-5.0); Anion Gap 7 mmol/L (6-16); Blood Urea Nitrogen 25 mg/dL (8-24); Bun/Creatinine Ratio 41.5 (12.0-20.0); CO2, Blood 33 mmol/L (21-32); Calcium, Blood 9.7 mg/dL (8.5-10.1); Chloride, Blood 96 mmol/L (98-108); Glomerular Filtration Rate 125 (60-); Glucose, Blood 89 mg/dL (70-99); Phosphorus, Blood 3.7 mg/dL (2.5-4.9); Potassium, Blood 3.4 mmol/L (3.5-5.5); Sodium, Blood 136 mmol/L (136-145)
--- NOTE | 2022-05-04 06:19 | NUR ---
SUMMARY PATIENT SLEEPING, AWAKENS TO SLIGHT STIMULI. PATIENT VERBALIZED THAT HE SLEPT WELL AFTER ATIVAN GIVEN FOR ANXIETY. PATIENT REPOSITIONING SELF IN BED WITHOUT DIFFICULTY. CONTINUE TO DIURESE WELL. NO BM AFTER REMOVAL OF RECTAL TUBE. BIOX DOWN TO 86% ON RA. OXYGEN 2L/NC WITH BIOX RANGING 91-99%
--- NOTE | 2022-05-04 10:28 | NUR ---
ASSUMED CARE OF PT, REPORT RCV'D FROM DENG Arambula RN. PT ALERT AND ORIENTED, COOPERATIVE WITH CARE. PER DR. GUAJARDO, PT TO GO TO SHELTER CASE MANAGER @1200. 2L NC, LUNG SOUNDS CLEAR T/O. VSS AT THIS TIME. KERR PATENT AND DRAINING TO GRAVITY. SEE FULL SHIFT ASSESSMENT.
--- NOTE | 2022-05-04 12:30 | NUR ---
PT BACK FROM ENTRY LEVEL PROGRAMMER, RIGHT FEMORAL ACCESS SITE WITH ANGIOSEAL. SITE SOFT/NON TENDER. PT ADVISED TO MINIMIZE RIGHT LEG MOVEMENT.
--- NOTE | 2022-05-04 17:42 | NUR ---
SHIFT SUMMARY PT REMAINS ALERT AND ORIENTED, PLEASANT AND COOPERATIVE WITH CARE. PT UP TO CHAIR MOST OF THE DAY, STANDBY ASSIST TO BEDSIDE COMMODE. PT EATING WELL, NO EVIDENCE OF ASPIRATION. BOWEL MOVEMENTS X2. LUNG SOUNDS REMAINS CLEAR, SATS 95-97% ON ROOM AIR. NSR, TACHY WITH EXERTION. PT REMINDED TO USE CALL LIGHT BEFORE ATTEMPTING AMBULATION, TAB ALARM IN PLACE. RIGHT FEMORAL ACCESS SITE SOFT, NON TENDER, DISTAL PULSES/PALLOR WNL. 1700 ML URINARY OUTPUT FROM KERR CATHETER. PT'S FAMILY UPDATED WITH PT'S STATUS AND PLAN OF CARE. WILL REPORT TO ONCOMING NURSE.
--- NOTE | 2022-05-04 19:15 | NUR ---
ASSUMPTION OF CARE PT IS ALERT AND ORIENTED X4. ABLE TO MAKE NEEDS KNOWN W/APPROPRIATE CONVERSATION. KERR CATH INTACT PATENT AND DRAINING YELLOW URINE TO GRAVITY BELOW THE LEVEL OF THE BLADDER. VS WNL, PT ON 2L NC. NO ACUTE DISTRESS REPORTED AND NONE NOTED AT TIME OF ASSUMPTION OF CARE.
[2022-05-05 04:57] LABS: BASOPHILS ABSOLUTE AUTO 0.18 K/mm3 (0.00-0.23); BASOPHILS PERCENT AUTO 2 % (0-2); EOSINOPHILS ABSOLUTE AUTO 1.25 K/mm3 (0.00-0.68); EOSINOPHILS PERCENT AUTO 10 % (0-6); Hemoglobin 13.2 g/dL (13.5-17.5); IMMATURE GRAN ABSOLUTE AUTO 0.04 K/mm3 (0.00-0.10); IMMATURE GRAN PERCENT AUTO 0 % (0-1); LYMPHOCYTES ABSOLUTE AUTO 2.44 K/mm3 (0.84-5.20); LYMPHOCYTES PERCENT AUTO 20 % (21-46); MONOCYTES ABSOLUTE AUTO 1.04 K/mm3 (0.16-1.47); MONOCYTES PERCENT AUTO 9 % (4-13); Mean Corpuscular HGB 32.2 pg (26.0-34.0); Mean Corpuscular Volume 98 fL (80-100); Mean Platelet Volume 9.1 fL (9.1-12.4); NEUTROPHILS ABSOLUTE AUTO 7.24 K/mm3 (1.96-9.15); NEUTROPHILS PERCENT AUTO 59 % (41-73); Platelet Count 456 K/mm3 (150-400); RDW Standard Deviation 46.7 fL (35.1-46.3); White Blood Cell Count 12.19 K/mm3 (4.00-11.30)
[2022-05-05 05:21] LABS: Bun/Creatinine Ratio 42.4 (12.0-20.0); Creatinine, Blood 0.64 mg/dL (0.60-1.20); Magnesium, Blood 1.9 mg/dL (1.6-2.4); Phosphorus, Blood 2.8 mg/dL (2.5-4.9); Potassium, Blood 3.4 mmol/L (3.5-5.5)
--- NOTE | 2022-05-05 06:42 | NUR ---
SHIFT SUMMERY PT HAS HAD AN UNEVENTFUL SHIFT. VS WNL, AFEBRILE-HE HAS BEEN ON ROOM AIR THROUGHOUT THE NIGHT W/OXYGEN SAT >95%. HE IS ALERT AND ORIENTED AND HAS BEEN SO THE LAST 12 HOURS. HE HAS HAD NO COMPLAINTS OF ANY DISTRESS NOR HAS ANY DISTRESS BEEN NOTED.
--- NOTE | 2022-05-05 10:07 | NUR ---
ASSUMED CARE OF PT, REPORT RCV'D FROM MANA RECINOS. PT ALERT AND ORIENTED, COOPERATIVE WITH CARE BUT OCCASIONALLY IMPULSIVE. PT FAIRLY STEADY ON FEET, NEEDS SBA, REMINDED TO USE CALL LIGHT PRIOR TO AMBULATION-OFTEN AMBULATES INDEPENDENTLY HE DOESN'T WANT TO "BE AN INCONVENIENCE". PT REMINDED THAT HIS SAFETY IS PRIORITY. TAB ALARM IN PLACE. URINE CATHETER REMOVED, 1200 ML URINE DUMPED-URINAL AT BEDSIDE. PT SIT WITH EXERTION, QUICKLY RECOVERS. MAINTAINS SATS WITH AMBULATION, DENIES CHEST PAIN OR SHORTNESS OF BREATH WITH EXERTION. REPORTS FATIGUE BUT MOTIVATED TO REGAIN STRENGTH. SEE FULL SHIFT ASSESSMENT.
--- NOTE | 2022-05-05 11:06 | NUR ---
PT REMOVED TELE LEADS, THIS NURSE ENTERED PT ROOM TO FIND HIM FRANTICALLY SEARCHING FOR HIS CLOTHES. ASKED PATIENT TO PLEASE SIT IN CHAIR OR ON BED AND ALLOW TELE LEADS TO BE REPLACED. PT STATES EXTREME FRUSTRATION AND ANXIETY HIS GIRLFRIEND (CYNDY) CALLED HIM AND TOLD HIM THAT SHE WAS "DROPPING ALL OF HIS SHIT OFF AT THE HOSPITAL BY HIS CAR". THIS NURSE CALLED PT'S MOTHER TO RELAY INFORMATION. ENCOURAGED PT TO RETURN TO BED, ASSURED HIM THAT HIS STUFF WAS BEING TAKEN CARE OF BY HIS MOTHER AND BROTHER RUDY. PT GIVE 1MG ATIVAN, MOVED PT'S MOBILE PHONE OUT OF PTS REACH AND ENCOURAGED RELAXATION TIME. PT AGREEABLE.
--- NOTE | 2022-05-05 17:02 | NUR ---
SHIFT SUMMARY NO ACUTE CHANGES T/O SHIFT. PT REMAINS ALERT AND ORIENTED, IMPULSIVE BUT COOPERATIVE WITH CARE. PT ATTEMPTS TO INDEPENDENTLY AMBULATE DESPITE BEING REMINDED TO CALL FOR ASSISTANCE, WELL REMOVING TELE MONITOR AND UNHOOKING IV FLUIDS. PT APOLOGETIC BUT CONTINUES TO AMBULATE. PT EXPERIENCING SIGNIFICANT ANXIETY RELATED TO "HOME ISSUES", CELL PHONE REMAINS ON SILENCE AND OUT OF PATIENTS REACH, PT MEDICATED WITH 1 MG ATIVAN WITH GOOD RESPONSE. PT REPORTS LESS ANXIETY AND WAS ABLE TO NAP FOR 1 HOUR. [facility] AT BEDSIDE, REPORTS PLAN IS FOR PATIENT TO BE DISCHARGED TO [facility], PATIENT AGREEABLE TO PLAN. 1500 ML URINARY OUTPUT THIS SHIFT. PT EATING AND DRINKING WELL. VSS T/O SHIFT. WILL REPORT TO ONCOMING NURSE.
--- NOTE | 2022-05-05 19:30 | NUR ---
ASSUMPTION OF CARE PT REPORTED TO HAVE WANTED TO LEAVE AMA EARLIER IN THE DAY. UPON INITIAL ASSESSMENT HE DOES NOT VOICE THE DESIRE TO LEAVE AT THIS TIME. HE SAYS HE IS AGREEABLE TO STAY IN THE HOSPITAL. HE DOES SEEM ANXIOUS, TALKED W/PT TO TRY TO DECREASE HIS ANXIETY. VS WNL AT THIS TIME. HE IS ON ROOM AIR-ALERT AND ORIENTED X4; GENERALIZED WEAKNESS. INSTRUCTED PT TO PRESS CALL LIGHT FOR ANY NEEDS/CONCERNS.
--- NOTE | 2022-05-05 23:22 | NUR ---
PT IS UP TO THE CHAIR AT THIS TIME. TAB ALARM WAS PLACED ON HIM. INSTRUCTED PT TO CALL WHEN HE WAS READY TO GO BACK TO BED. EDUCATED PT ON DISEASE PROCESS.
--- NOTE | 2022-05-06 00:31 | NUR ---
PT IS ALERT AND ORIENTED X 4. HE CONTINUES TO GET OUT OF BED DESPITE REPEATED TEACHING AND BED ALARM BEING ON. HE ALSO DISCONNECTS HIMSELF FROM THE MONITOR AND CHAIR ALARM DEVICES. WILL CONTINUE TO REINFORCE THE NEED FOR HIM TO CALL FOR ASSISTANCE AND REEDUCATE ON THE DANGERS OF FALLS AND NON-COMPIANCE APPROPRIATE.
--- NOTE | 2022-05-06 03:00 | NUR ---
PT TRANSFERRED TO PCU ROOM 3. I WILL REMAIN THE RN CARING FOR THE PT AT THIS TIME.
[2022-05-06 04:38] LABS: BASOPHILS ABSOLUTE AUTO 0.18 K/mm3 (0.00-0.23); BASOPHILS PERCENT AUTO 1 % (0-2); EOSINOPHILS ABSOLUTE AUTO 1.02 K/mm3 (0.00-0.68); EOSINOPHILS PERCENT AUTO 8 % (0-6); Hematocrit 37.6 % (37.0-53.0); IMMATURE GRAN ABSOLUTE AUTO 0.06 K/mm3 (0.00-0.10); IMMATURE GRAN PERCENT AUTO 1 % (0-1); LYMPHOCYTES ABSOLUTE AUTO 2.23 K/mm3 (0.84-5.20); LYMPHOCYTES PERCENT AUTO 18 % (21-46); MONOCYTES ABSOLUTE AUTO 0.99 K/mm3 (0.16-1.47); MONOCYTES PERCENT AUTO 8 % (4-13); Mean Corpuscular HGB 31.2 pg (26.0-34.0); Mean Corpuscular HGB Conc 31.9 g/dL (31.5-36.5); Mean Corpuscular Volume 98 fL (80-100); Mean Platelet Volume 9.4 fL (9.1-12.4); NEUTROPHILS ABSOLUTE AUTO 7.99 K/mm3 (1.96-9.15); NEUTROPHILS PERCENT AUTO 64 % (41-73); Platelet Count 476 K/mm3 (150-400); RDW Coefficient Variation 13.2 % (11.7-14.2); RDW Standard Deviation 47.8 fL (35.1-46.3); Red Blood Cell Count 3.85 M/mm3 (4.30-5.90); White Blood Cell Count 12.47 K/mm3 (4.00-11.30)
[2022-05-06 04:53] LABS: Bun/Creatinine Ratio 52.4 (12.0-20.0); Calcium, Blood 9.5 mg/dL (8.5-10.1); Creatinine, Blood 0.65 mg/dL (0.60-1.20); Magnesium, Blood 1.7 mg/dL (1.6-2.4); Phosphorus, Blood 2.7 mg/dL (2.5-4.9); Potassium, Blood 3.4 mmol/L (3.5-5.5)
--- NOTE | 2022-05-06 18:33 | NUR ---
ASSUMED CARE OF PT AT 0700 THIS AM. PT RESTING QUIETLY T/O MOST OF THE DAY, FAMILY IN TO VISIT. NO COMPLAINTS OR ACUTE EVENTS T/O THE SHIFT. PER DR REECE, PT MAY DISCHARGE TOMORROW IF CARDIOLOGY IS OK WITH MEDICATION REGIMENT. PT UP AMBULATING IN ROOM INDEPENDENTLY, GAIT STEADY. CALL LIGHT IN REACH, WILL CONTINUE TO MONITOR, AND GIVE REPORT TO NOC SHIFT RN.
--- NOTE | 2022-05-07 06:47 | NUR ---
NOC SHIFT SUMMARY AT START OF SHIFT PT FOUND ON MEDICAL FLOOR TRYING TO FIND ROOM AND SENT BACK TO PCU BY MEDICAL FLOOR STAFF. PT UAL IN ROOM, NOTIFIED CHARGE AND PT PLACED ON CAMERA WITH INSTRUCTIONS TO NOTIFY IF PATIENT LEAVES THE ROOM. EDUCATED PATIENT ON RESTRICTIONS OF WANDERING. PT VERBALIZED UNDERSTANDING. PT ORIENTED X4, DELAYED RESPONSES. ON RA. VSS PER PT TREND. SBP IN 90S. HR 90S TO 130S W/ACTIVITY. NO COMPLAINTS OF PAIN OR DISCOMFORT. PT NON-COMPLIANT WITH USE OF URINAL FOR TRACKING OUTPUT. EDUCATED ON IMPORTANCE AND HEART FAILURE. WILL CONTINUE TO MONITOR AND PASS ON TO DAY RN
[2022-05-07 07:35] LABS: BASOPHILS ABSOLUTE AUTO 0.13 K/mm3 (0.00-0.23); BASOPHILS PERCENT AUTO 1 % (0-2); EOSINOPHILS ABSOLUTE AUTO 1.04 K/mm3 (0.00-0.68); EOSINOPHILS PERCENT AUTO 11 % (0-6); Hemoglobin 13.1 g/dL (13.5-17.5); IMMATURE GRAN ABSOLUTE AUTO 0.03 K/mm3 (0.00-0.10); IMMATURE GRAN PERCENT AUTO 0 % (0-1); LYMPHOCYTES ABSOLUTE AUTO 2.49 K/mm3 (0.84-5.20); LYMPHOCYTES PERCENT AUTO 27 % (21-46); MONOCYTES ABSOLUTE AUTO 0.87 K/mm3 (0.16-1.47); MONOCYTES PERCENT AUTO 9 % (4-13); Mean Corpuscular HGB Conc 32.8 g/dL (31.5-36.5); Mean Corpuscular Volume 98 fL (80-100); Mean Platelet Volume 9.1 fL (9.1-12.4); NEUTROPHILS ABSOLUTE AUTO 4.68 K/mm3 (1.96-9.15); NEUTROPHILS PERCENT AUTO 51 % (41-73); Platelet Count 445 K/mm3 (150-400); RDW Coefficient Variation 13.2 % (11.7-14.2); RDW Standard Deviation 47.7 fL (35.1-46.3); White Blood Cell Count 9.24 K/mm3 (4.00-11.30)
[2022-05-07 07:55] LABS: Albumin, Blood 3.9 g/dL (3.4-5.0); Anion Gap 9 mmol/L (6-16); Blood Urea Nitrogen 37 mg/dL (8-24); Bun/Creatinine Ratio 50.4 (12.0-20.0); CO2, Blood 29 mmol/L (21-32); Calcium, Blood 9.9 mg/dL (8.5-10.1); Chloride, Blood 97 mmol/L (98-108); Creatinine, Blood 0.73 mg/dL (0.60-1.20); Glomerular Filtration Rate 118 (60-); Glucose, Blood 93 mg/dL (70-99); Phosphorus, Blood 3.7 mg/dL (2.5-4.9); Potassium, Blood 3.2 mmol/L (3.5-5.5); Sodium, Blood 135 mmol/L (136-145)
--- NOTE | 2022-05-07 17:55 | NUR ---
PHONE CALL TO DR. REECE REGARDING HYPOTENSION. HOLD TONIGHTS CARVEDILOL PER DR. MILLER. WILL CONTINUE TO MONITOR AND TREAT.
[2022-05-08 05:19] LABS: BASOPHILS ABSOLUTE AUTO 0.12 K/mm3 (0.00-0.23); BASOPHILS PERCENT AUTO 1 % (0-2); EOSINOPHILS ABSOLUTE AUTO 0.88 K/mm3 (0.00-0.68); EOSINOPHILS PERCENT AUTO 10 % (0-6); Hematocrit 36.7 % (37.0-53.0); Hemoglobin 12.1 g/dL (13.5-17.5); IMMATURE GRAN ABSOLUTE AUTO 0.02 K/mm3 (0.00-0.10); IMMATURE GRAN PERCENT AUTO 0 % (0-1); LYMPHOCYTES ABSOLUTE AUTO 2.49 K/mm3 (0.84-5.20); LYMPHOCYTES PERCENT AUTO 28 % (21-46); MONOCYTES ABSOLUTE AUTO 0.82 K/mm3 (0.16-1.47); MONOCYTES PERCENT AUTO 9 % (4-13); Mean Corpuscular Volume 97 fL (80-100); Mean Platelet Volume 9.1 fL (9.1-12.4); NEUTROPHILS ABSOLUTE AUTO 4.57 K/mm3 (1.96-9.15); NEUTROPHILS PERCENT AUTO 51 % (41-73); Platelet Count 436 K/mm3 (150-400); RDW Coefficient Variation 13.3 % (11.7-14.2); RDW Standard Deviation 47.6 fL (35.1-46.3); Red Blood Cell Count 3.78 M/mm3 (4.30-5.90)
[2022-05-08 05:42] LABS: Albumin, Blood 3.7 g/dL (3.4-5.0); Anion Gap 7 mmol/L (6-16); Blood Urea Nitrogen 46 mg/dL (8-24); Bun/Creatinine Ratio 71.3 (12.0-20.0); CO2, Blood 29 mmol/L (21-32); Calcium, Blood 9.8 mg/dL (8.5-10.1); Chloride, Blood 99 mmol/L (98-108); Creatinine, Blood 0.65 mg/dL (0.60-1.20); Glomerular Filtration Rate 122 (60-); Glucose, Blood 95 mg/dL (70-99); Phosphorus, Blood 3.3 mg/dL (2.5-4.9); Potassium, Blood 3.5 mmol/L (3.5-5.5); Sodium, Blood 135 mmol/L (136-145)
--- NOTE | 2022-05-08 06:46 | NUR ---
NOC SHIFT SUMMARY PT SLEPT WELL OVERNIGHT. ORIENTED X4. VSS PER PT TREND WITH LOW SBP IN 90S. MAPS ABOVE 65. ON RA. PICC LINE IN ALTHEA W/SLUGGISH BLOOD RETURN, PT DRAWN PERIPHERALLY THIS AM FOR LABS. UAL IN ROOM. NO COMPLAINTS OF PAIN OR DISCOMFORT. SR/ST ON TELEMETRY.
[2022-05-08] MEDS ORDERED: FURO20 PO (11:16)
[2022-05-08] MEDS ORDERED: LOSA25 PO (11:16)
[2022-05-08] MEDS ORDERED: POTA10T PO (12:31)
== END 2022-05-08 12:30 | disposition home or self-care (01) | DRG 207 ==
LOC: ER 08:56 → ICUE 12:54 → PCU 12:54 → ER 14:09 → PCU 14:49 → ICUE 04-22 03:59 → PCU 05-06 02:59
PROVIDERS: Family Medicine; Internal Medicine; Internal Medicine Critical Care Medicine; Nurse Practitioner Acute Care; Pharmacist; Student in an Organized Health Care Education/Training Program; ADMIT Internal Medicine
PROC: HZ2ZZZZ Detoxification Services for Substance Abuse Treatment (ICD-10-PCS; principal; 2022-04-21)
PROC: 0BH18EZ Insertion of Endotracheal Airway into Trachea, Via Natural or Artificial Opening Endoscopic (ICD-10-PCS; 2022-04-21)
PROC: 5A12012 Performance of Cardiac Output, Single, Manual (ICD-10-PCS; 2022-04-21)
PROC: 02HV33Z Insertion of Infusion Device into Superior Vena Cava, Percutaneous Approach (ICD-10-PCS; 2022-04-21)
PROC: 5A1955Z Respiratory Ventilation, Greater than 96 Consecutive Hours (ICD-10-PCS; 2022-04-22)
PROC: 3E033XZ Introduction of Vasopressor into Peripheral Vein, Percutaneous Approach (ICD-10-PCS; 2022-04-29)
PROC: 4A023N7 Measurement of Cardiac Sampling and Pressure, Left Heart, Percutaneous Approach (ICD-10-PCS; 2022-05-04)
PROC: B2111ZZ Fluoroscopy of Multiple Coronary Arteries using Low Osmolar Contrast (ICD-10-PCS; 2022-05-04)
DX: J18.9 Pneumonia, unspecified organism (principal); I46.8 Cardiac arrest due to other underlying condition; J96.01 Acute respiratory failure with hypoxia; R57.0 Cardiogenic shock; I50.21 Acute systolic (congestive) heart failure; I46.9 Cardiac arrest, cause unspecified; F10.239 Alcohol dependence with withdrawal, unspecified; I42.6 Alcoholic cardiomyopathy; N17.9 Acute kidney failure, unspecified; I77.2 Rupture of artery; Z20.822 Contact with and (suspected) exposure to COVID-19; Z78.1 Physical restraint status; G89.29 Other chronic pain; M54.9 Dorsalgia, unspecified; K70.10 Alcoholic hepatitis without ascites; R00.0 Tachycardia, unspecified; F15.90 Other stimulant use, unspecified, uncomplicated; E87.6 Hypokalemia; E83.42 Hypomagnesemia; E83.39 Other disorders of phosphorus metabolism; K21.9 Gastro-esophageal reflux disease without esophagitis; D63.8 Anemia in other chronic diseases classified elsewhere; D75.839 Thrombocytosis, unspecified; Z71.41 Alcohol abuse counseling and surveillance of alcoholic; Z71.51 Drug abuse counseling and surveillance of drug abuser
CPT/HCPCS: 0241U; 31500; 36415; 36556; 36569; 36600; 51702; 71045; 71260; 76705; 80048; 80053; 80069; 80074; 80076; 80202; 81001; 82140; 82248; 82330; 82533; 82803; 82947; 83605; 83690; 83735; 83880; 84100; 84132; 84145; 84443; 84478; 84484; 85025; 85610; 85730; 87040; 87070; 87086; 87205; 92610; 92950; 93005; 93010; 93306; 93308; 93321; 93454; 93567; 94002; 94003; 94640; 94760; 94762; 96374; 96375; 97110; 97116; 97162; 97166; 97530; 99152; 99153; 99285-25; A9270; C1751; C1760; C1769; C1894; C9113; G0480; J0456; J0610; J0692; J0696; J1160; J1630; J1644; J1650; J1940; J2060; J2250; J2270; J2370; J2704; J2765; J3010; J3370; J3411; J3475; J3480; J7030; J7040; J7050; J7060; P9046; Q9967